=== PATIENT | female | born 1955 | race African-American/Black ===

== ENCOUNTER 2019-05-03 12:47 | Emergency (ER) | payer MEDICARE ==
[~2019-05-03] VITALS: Ht 170.2 cm; Wt 62.6 kg
[~2019-05-03 12:47] MED LIST: ABILIFY2 MG PO; CYCLOBENZAPRINE10 MG PO; ELDEPRYL5 MG ORAL; EMSAM; IRON; KLONOPIN0.5 MG ORAL; LAMOTRIGINE200 M1 PO; LEVOTHYROXINE; LEVOTHYROXINE50 MCG ORAL; LITHIUM CARBONATE; MIRTAZAPINE15 M3 ORAL; PEPCID20 MG ORAL; PERCOCET 5-3251 EACH ORAL; POLYETHYLENE GL17 GM ORAL; RISPERDAL2 MG ORAL; TRAZODONE HCL50 MG ORAL
[2019-05-03 12:50] VITALS: BP 106/60
--- NOTE | 2019-05-03 12:57 | NUR ---
ED Nurse Note: Patient waled into ED from home c/o generalized bodyaches and fatigue for the last 2 months. patient reports she is feeling more tired and painful starting today. patient is alert awake x4 ambulatory, breathing unlabored and even, speaking in full sentences
[2019-05-03 13:40] LABS: BASOPHILS % (AUTO) 1.4 % (0.0-2.0); EOSINOPHILS % (AUTO) 3.3 % (0.0-3.0); HEMOGLOBIN 13.2 G/DL (12.0-16.0); LYMPHOCYTES % (AUTO) 32.6 % (20.0-45.0); MEAN CORPUSCULAR VOLUME 84 FL (80-99); MONOCYTES % (AUTO) 7.2 % (1.0-10.0); NEUTROPHILS % (AUTO) 55.5 % (45.0-75.0); PLATELET COUNT 223 K/UL (150-450); RED BLOOD COUNT 4.91 M/UL (4.20-5.40); RED CELL DISTRIBUTION WIDTH 13.1 % (11.6-14.8); WHITE BLOOD COUNT 8.3 K/UL (4.8-10.8)
[2019-05-03 13:52] LABS: ANION GAP 8 mmol/L (5-15); BLOOD UREA NITROGEN 16 mg/dL (7-18); CALCIUM 10.3 MG/DL (8.5-10.1); CARBON DIOXIDE 27 MMOL/L (21-32); CHLORIDE 105 MMOL/L (98-107); CREATININE 1.4 MG/DL (0.55-1.30); POTASSIUM 4.8 MMOL/L (3.5-5.1); SODIUM 139 MMOL/L (136-145)
--- NOTE | 2019-05-03 13:53 | NUR ---
ED Nurse Note: patient taken to xray via wheelchair in stable condition
--- NOTE | 2019-05-03 14:03 | Emergency Room Report ---
History of Present Illness General Chief Complaint: Generalized Weakness Source: Patient Present Illness HPI 63-year-old female presents to the emergency department complaining of progressive generalized weakness and myalgias x1 month. Patient reports the last 2 weeks have had sick significant progression compared to previous weeks. Patient reports longstanding history of dysthymia and bipolar/depression as well as hypothyroidism. Patient states she had her labs done on initial evaluation by her psychiatrist and states that they were all normal. Patient states that they thought her severe lethargy and fatigue may have been medication side effect so they slowly took her off of Lamictal. Patient states that after being taken off Lamictal is when she noticed a large increase in her symptoms. Patient reports daytime tiredness as well as nodding off. She reports 3 out of 7 days of the week she sleeps normal 8 hours however the other day she states she wakes up after about 4 hours even if taking Seroquel at night for which she is prescribed as needed. She currently takes 450 mg lithium daily she has been on and off of this medication since the age of 22. She describes her muscle aches and pains as "sore as if you were just working out "she states she has increase in low back pain and bilateral hips. She states she slipped and fell and landed on her back approximately 2 weeks ago. Denies numbness tingling or loss of sensation or gross motor movements of the extremities, incontinence of bowel or bladder. Denies CP, Palpitations, LOC, AMS , dizziness, Changes in Vision, weakness or a sudden severe headache. She reports difficulty with concentration and feeling discombobulated and disorganized. She denies dysuria, hematuria or urinary frequency. She denies dizziness, nausea, vomiting or abdominal pain/tenderness. Allergies: Coded Allergies: No Known Allergies (Unverified , 12/16/11) Patient History Past Medical History: see triage record Past Surgical History: none Pertinent Family History: none Last Menstrual Period: NA Now: No Reviewed Nursing Documentation: PMH: Agreed; PSxH: Agreed Nursing Documentation-PMH Past Medical History: No History, Except For History Of Psychiatric Problem: Yes - Bipolar, depression Review of Systems All Other Systems: negative except mentioned in HPI Physical Exam Vital Signs Date Time Temp Pulse Resp B/P (MAP) Pulse Ox O2 Delivery O2 Flow Rate FiO2 05/03/19 12:50 98.1 90 18 106/60 98 Room Air Sp02 EP Interpretation: reviewed, normal General Appearance: no apparent distress, alert, GCS 15, non-toxic Head: normocephalic, atraumatic Eyes: bilateral eye normal inspection, bilateral eye PERRL ENT: hearing grossly normal, normal voice Neck: full range of motion Respiratory: chest non-tender, lungs clear, normal breath sounds, speaking full sentences Cardiovascular #1: regular rate, rhythm, no edema Gastrointestinal: normal bowel sounds, non tender, soft Rectal: deferred Genitourinary: normal inspection, no CVA tenderness Musculoskeletal: normal range of motion, gait/station normal, non-tender - NO tenderness: pt. reports improvement of pain when palpating lumbar paraspinal musculature. No midline spinous process ttp. No palpable step-offs or obvious deformities of the cervical, lumbar, or sacral spine. Neurologic: alert, motor strength/tone normal, oriented x3, sensory intact, responsive, speech normal Psychiatric: judgement/insight normal Skin: no rash, normal color Lymphatic: no adenopathy Medical Decision Making PA Attestation Dr. Hutchinson is my supervising Physician whom patient management has been discussed with. Diagnostic Impression: Primary Impression: Hypothyroid Qualified Codes: E03.9 - Hypothyroidism, unspecified Additional Impression: First degree heart block determined by electrocardiography ER Course 63-year-old female presents to the emergency department complaining of progressive generalized weakness and myalgias x1 month. Patient reports the last 2 weeks have had sick significant progression compared to previous weeks. Patient reports longstanding history of dysthymia and bipolar/depression as well as hypothyroidism. Patient states she had her labs done on initial evaluation by her psychiatrist and states that they were all normal. Patient states that they thought her severe lethargy and fatigue may have been medication side effect so they slowly took her off of Lamictal. Patient states that after being taken off Lamictal is when she noticed a large increase in her symptoms. Patient reports daytime tiredness as well as nodding off. She reports 3 out of 7 days of the week she sleeps normal 8 hours however the other day she states she wakes up after about 4 hours even if taking Seroquel at night for which she is prescribed as needed. She currently takes 450 mg lithium daily she has been on and off of this medication since the age of 22. She describes her muscle aches and pains as "sore as if you were just working out "she states she has increase in low back pain and bilateral hips. She states she slipped and fell and landed on her back approximately 2 weeks ago. Denies numbness tingling or loss of sensation or gross motor movements of the extremities, incontinence of bowel or bladder. Denies CP, Palpitations, LOC, AMS , dizziness, Changes in Vision, weakness or a sudden severe headache. She reports difficulty with concentration and feeling discombobulated and disorganized. She denies dysuria, hematuria or urinary frequency. She denies dizziness, nausea, vomiting or abdominal pain/tenderness. Ddx considered but are not limited to : MS, MG, [place], [place], drug intoxication, hypovolemia, infection, rhabdomyolysis, ETOH, CVA/TIA, NMS, CHF, Seizures, Cardiac outflow obstruction, QT-prolongation, Brugada, or Anemia just to name a few. Vital signs: are WNL, pt. is afebrile H&PE are most consistent with possible hypothyroid as most likely cause, will do labs ORDERS: -EKG: sinus kinsey with mild 1st degree AV block. -CBC: Unremarkable -CMP: Within normal limits other than creatinine of 1.4 -CK: Normal -TSH: 10.38 which is high -Free T3/T4 : both WNL UA: WNL ED INTERVENTIONS: None required at this time. --I discussed with this patient the results of her lab work and that we will mildly increase her dosage of levothyroxine but she needs to follow-up urgently with her primary care provider as she may require additional adjustments and repeat labs. Also discussed with patient abnormality found on EKG and the need for cardiology follow-up. She is given a copy of her EKG her discharge instructions will reiterate need for cardiology follow-up as well. The patient verbalizes her understanding and agreement with this plan. DISCHARGE: At this time pt. is stable for d/c to home. Will provide printed patient care instructions, and any necessary prescriptions. Care plan and follow up instructions have been discussed with the patient prior to discharge. Labs Test 05/03/19 13:24 White Blood Count 8.3 K/UL (4.8-10.8) Red Blood Count 4.91 M/UL (4.20-5.40) Hemoglobin 13.2 G/DL (12.0-16.0) Hematocrit 41.0 % (37.0-47.0) Mean Corpuscular Volume 84 FL (80-99) Mean Corpuscular Hemoglobin 26.9 PG (27.0-31.0) Mean Corpuscular Hemoglobin Concent 32.2 G/DL (32.0-36.0) Red Cell Distribution Width 13.1 % (11.6-14.8) Platelet Count 223 K/UL (150-450) Mean Platelet Volume 6.4 FL (6.5-10.1) Neutrophils (%) (Auto) 55.5 % (45.0-75.0) Lymphocytes (%) (Auto) 32.6 % (20.0-45.0) Monocytes (%) (Auto) 7.2 % (1.0-10.0) Eosinophils (%) (Auto) 3.3 % (0.0-3.0) Basophils (%) (Auto) 1.4 % (0.0-2.0) Urine Color Pale yellow Urine Appearance Clear Urine pH 7 (4.5-8.0) Urine Specific [place] 1.005 (1.005-1.035) Urine Protein Negative (NEGATIVE) Urine Glucose (UA) Negative (NEGATIVE) Urine Ketones Negative (NEGATIVE) Urine Blood Negative (NEGATIVE) Urine Nitrite Negative (NEGATIVE) Urine Bilirubin Negative (NEGATIVE) Urine Urobilinogen Normal MG/DL (0.0-1.0) Urine Leukocyte Esterase 1+ (NEGATIVE) Urine RBC 0 /HPF (0 - 2) Urine WBC 0-2 /HPF (0 - 2) Urine Squamous Epithelial Cells Few /LPF (NONE/OCC) Urine Bacteria Occasional /HPF (NONE) Sodium Level 139 MMOL/L (136-145) Potassium Level 4.8 MMOL/L (3.5-5.1) Chloride Level 105 MMOL/L (98-107) Carbon Dioxide Level 27 MMOL/L (21-32) Anion Gap 8 mmol/L (5-15) Blood Urea Nitrogen 16 mg/dL (7-18) Creatinine 1.4 MG/DL (0.55-1.30) Estimat Glomerular Filtration Rate 45.8 mL/min (>60) Glucose Level 107 MG/DL (74-106) Calcium Level 10.3 MG/DL (8.5-10.1) Total Bilirubin 0.3 MG/DL (0.2-1.0) Aspartate Amino Transf (AST/SGOT) 35 U/L (15-37) Alanine Aminotransferase (ALT/SGPT) 25 U/L (12-78) Alkaline Phosphatase 85 U/L (46-116) Total Creatine Kinase 205 U/L (26-308) Total Protein 7.9 G/DL (6.4-8.2) Albumin 3.9 G/DL (3.4-5.0) Globulin 4.0 g/dL Albumin/Globulin Ratio 1.0 (1.0-2.7) Thyroid Stimulating Hormone (TSH) 10.389 uiU/mL (0.358-3.740) Free Thyroxine 0.77 NG/DL (0.76-1.46) Free Triiodothyronine 2.3 pg/mL (2.3-4.2) EKG Diagnostic Results EP Interpretation: Dr. Hutchinson Rate: bradycardiac - 59 Rhythm: NSR ST Segments: no acute changes ASA given to the pt in ED: No PA Scribe Text This Interpretation was scribed by EM Mcneal. Other X-Ray Diagnostic Results Other X-Ray Diagnostic Results #1: X-Ray ordered: L-Spint # of Views/Limited Vs Complete: 3 View Indication: Pain EP Interpretation: Yes EM Xray: Interpretation reviewed, by supervising MD, and agrees with findings. Interpretation: no dislocation, no soft tissue swelling, no fractures Impression: No acute disease Electronically Signed by: Damaris Mcneal PA-C Other X-Ray Diagnostic Results #2: X-Ray ordered: Bilateral Hips w. AP pelvis # of Views/Limited Vs Complete: 4 View Indication: Pain EP Interpretation: Yes EM Xray: Interpretation reviewed, by supervising MD, and agrees with findings. Interpretation: no dislocation, no soft tissue swelling, no fractures, other - moderate amt. of stool Impression: No acute disease Electronically Signed by: Damaris Mcneal PA-C Last Vital Signs Date Time Temp Pulse Resp B/P (MAP) Pulse Ox O2 Delivery O2 Flow Rate FiO2 05/03/19 13:04 90 18 Room Air 05/03/19 12:50 98.1 106/60 (75) 98 Status: improved Disposition: HOME, SELF-CARE Condition: Stable Scripts Levothyroxine Sodium (Synthroid) 50 Mcg Tablet 50 MCG ORAL DAILY for 30 Days, #30 TAB Take in the morning on an empty stomach, at least 30 minutes beforefood. Prov: Damaris Mcneal 05/03/19 Referrals: SHELIA SOUSA MD (PCP) Patient Instructions: First-Degree Atrioventricular Block, Hypothyroidism Additional Instructions: Take medications as directed. Follow up with a Primary Care Provider in 3-5 days, well as a PAI GOW MANAGER even if your symptoms have resolved. Return sooner to ED if new symptoms occur, or current symptoms become worse. - Please note that this Emergency Department Report was dictated using [employer] developer manager technology software, occasionally this can lead to erroneous entry secondary to interpretation by the dictation equipment. Damaris Mcneal May 03, 2019 14:03
[2019-05-03 14:07] LABS: ALANINE AMINOTRANSFERASE 25 U/L (12-78); ALBUMIN 3.9 G/DL (3.4-5.0); ALKALINE PHOSPHATASE 85 U/L (46-116); ASPARTATE AMINO TRANSFERASE 35 U/L (15-37); BILIRUBIN,TOTAL 0.3 MG/DL (0.2-1.0); CREATINE KINASE 205 U/L (26-308)
--- NOTE | 2019-05-03 14:49 | Diagnostic Imaging Report ---
EXAM: XR Lumbar Spine, 2 or 3 Views CLINICAL HISTORY: PAIN TECHNIQUE: Frontal and lateral views of the lumbar spine. COMPARISON: No relevant prior studies available. FINDINGS: Vertebrae: No acute fracture or malalignment. Degenerative changes and osteopenia. Disc spaces: No acute findings. Soft tissues: No radiodense foreign body. IMPRESSION: No acute fracture or malalignment.
[2019-05-03 15:00] VITALS: BP 110/62
[2019-05-03 15:02] LABS: APPEARANCE,URINE CLEAR; BILIRUBIN, URINE NEGATIVE (NEGATIVE); COLOR,URINE PALE YELLOW; GLUCOSE, URINE (UA) NEGATIVE (NEGATIVE); KETONES,URINE NEGATIVE (NEGATIVE); LEUKOCYTE ESTERASE ,URINE 1+ (NEGATIVE); NITRITE,URINE NEGATIVE (NEGATIVE); PH,URINE 7 (4.5-8.0); PROTEIN,URINE NEGATIVE (NEGATIVE); UROBILINOGEN,URINE NORMAL MG/DL (0.0-1.0)
--- NOTE | 2019-05-03 15:06 | Diagnostic Imaging Report ---
EXAM: XR Bilateral Hips With Pelvis When Performed, 3 films CLINICAL HISTORY: PAIN TECHNIQUE: Three views of the bilateral hips, with pelvis when performed. COMPARISON: No relevant prior studies available. FINDINGS: Bones/joints: No acute fracture. Soft tissues: No radiodense foreign body. IMPRESSION: No fracture or dislocation.
[2019-05-03] MEDS ORDERED: SYNTHROID50 MCG ORAL (15:22)
[2019-05-03 15:35] VITALS: BP 110/62
--- NOTE | 2019-05-03 15:35 | NUR ---
ER DISCHARGE NOTE: Patient is cleared to be discharged per ERNA GIL, pt is aox4, on room air, with stable vital signs. pt was given dc and prescription instructions, pt was able to verbalize understanding, pt id band and iv site removed without complications. pt is able to ambulate with steady gait. pt took all belongings.
== END 2019-05-03 15:34 | disposition home or self-care (01) ==
LOC: EMR 13:18
DX: E03.9 Hypothyroidism, unspecified (principal); I44.0 Atrioventricular block, first degree; F31.9 Bipolar disorder, unspecified; F32.9 Major depressive disorder, single episode, unspecified; M79.10 Myalgia, unspecified site; R00.1 Bradycardia, unspecified
CPT/HCPCS: 36415; 72020; 73521; 80053; 81003; 82550; 84439; 84443; 84481; 85025; 93005; 99284

== ENCOUNTER 2019-05-29 16:41 | Emergency (ER) | payer MEDICARE ==
[~2019-05-29] VITALS: Ht 167.6 cm; Wt 63.0 kg
[2019-05-29 16:32] VITALS: BP 156/71
--- NOTE | 2019-05-29 16:35 | NUR ---
ED Nurse Note: Patient walked in to ER from home due to abdominal pain and SOB since this morning. pt denied fever, N/V/D. temp 98.6F noted. pt also c/o fatigued and constipation, unable to sleep for last 3 months. anxiousness and irritability noted but able to follow commands and no combative behavior noted. pt aao x4 and ambulatory. skin clean and intact. no coughing noted. O2 at room air 99% noted. pt has h/o bipolar. no cardiac or pulmonary distress noted at this time.
[~2019-05-29 16:41] MED LIST changes: +SEROQUEL100 MG ORAL; +SYNTHROID100 MCG ORAL; +SYNTHROID50 MCG ORAL
--- NOTE | 2019-05-29 17:17 | NUR ---
ED Nurse Note: pt urinated in the specimen cup but dropped and spilled it. ERPA made aware. pt provided two cups of water for another urine sample.
[2019-05-29] MEDS ORDERED: Lidocaine 2% Visc 15ml soln ORAL ONE (17:30)
--- NOTE | 2019-05-29 17:30 | Emergency Room Report ---
History of Present Illness General Chief Complaint: General Complaint Source: Patient Present Illness HPI 63-year-old female presents to the emergency department with multiple complaints most of which are similar to complaint she presented for the emergency department approximately 26 days ago. She reports having an episode of feeling shortness of breath as well as low back pain. Patient reports that the back pain is new and argues that she did not have back pain last visit despite having an L-spine x-ray performed. She is also reporting some lower abdominal pain. Patient states that her PCP increased her dosage of levothyroxine to 100 mg from her last visit here in the ED. She reports constant fatigue and difficulty sleeping. She reports persistent body aches/ muscle aches. She denies trauma or fall. Denies numbness tingling or loss of sensation or gross motor movements of the extremities, incontinence of bowel or bladder. Denies CP, Palpitations, LOC, AMS, dizziness, Changes in Vision, weakness or a sudden severe headache. She denies CP, palpitations, recent travel, recent surgery, or estrogen use. She denies smoking hx. Denies cough, hemoptysis, or wheezing. She denies fevers or chills. Allergies: Coded Allergies: No Known Allergies (Unverified , 12/16/11) COVID-19 Screening Contact w/high risk pt: No Recent Travel to affected area: No Experienced COVID-19 symptoms?: Yes COVID-19 symptoms experienced: Shortness of Breath Patient History Past Medical History: see triage record Past Surgical History: unable to obtain Pertinent Family History: none Now: No Reviewed Nursing Documentation: PMH: Agreed; PSxH: Agreed Nursing Documentation-PMH Past Medical History: No History, Except For History Of Psychiatric Problem: Yes - Bipolar Review of Systems All Other Systems: negative except mentioned in HPI Physical Exam Vital Signs Date Time Temp Pulse Resp B/P (MAP) Pulse Ox O2 Delivery O2 Flow Rate FiO2 05/29/19 16:24 98.6 91 17 156/71 (99) 99 Room Air Sp02 EP Interpretation: reviewed, normal General Appearance: well appearing, no apparent distress, alert, GCS 15, non- toxic Head: normocephalic, atraumatic Eyes: bilateral eye normal inspection, bilateral eye PERRL ENT: hearing grossly normal, normal voice Neck: full range of motion Respiratory: chest non-tender, lungs clear, normal breath sounds, no respiratory distress, no accessory muscle use, no wheezing, speaking full sentences Cardiovascular #1: regular rate, rhythm, no edema, normal capillary refill Gastrointestinal: normal bowel sounds, non tender - no tenderness on exam., soft, non-distended, no guarding Rectal: deferred Genitourinary: normal inspection, no CVA tenderness Musculoskeletal: back normal, normal range of motion, gait/station normal, non- tender, other - Pt. has FROM noted to initially lying on the ground, stand up , ambulate, sit in chair with legs flexed and on nearby chair. Neurologic: alert, motor strength/tone normal, oriented x3, sensory intact, responsive, speech normal, normal gait Psychiatric: anxious, other - Pt. has very labile mood rapidly cycling between calm and cooperative to histrionic, lying on the floor, and easily agitated with HPI questions. Skin: no rash, normal color, normal inspection Lymphatic: no adenopathy Medical Decision Making PA Attestation Dr. Sunshine is my supervising Physician whom patient management has been discussed with. Diagnostic Impression: Primary Impression: Abdominal pain Qualified Codes: R10.30 - Lower abdominal pain, unspecified Additional Impressions: Increasing shortness of breath Fatigue Qualified Codes: R53.83 - Other fatigue Myalgia ER Course 63-year-old female presents to the emergency department with multiple complaints most of which are similar to complaint she presented for the emergency department approximately 26 days ago. She reports having an episode of feeling shortness of breath as well as low back pain. Patient reports that the back pain is new and argues that she did not have back pain last visit despite having an L-spine x-ray performed. She is also reporting some lower abdominal pain. Patient states that her PCP increased her dosage of levothyroxine to 100 mg from her last visit here in the ED. She reports constant fatigue and difficulty sleeping. She reports persistent body aches/ muscle aches. She denies trauma or fall. Denies numbness tingling or loss of sensation or gross motor movements of the extremities, incontinence of bowel or bladder. Denies CP, Palpitations, LOC, AMS, dizziness, Changes in Vision, weakness or a sudden severe headache. She denies CP, palpitations, recent travel, recent surgery, or estrogen use. She denies smoking hx. Denies cough, hemoptysis, or wheezing. She denies fevers or chills. Ddx considered but are not limited to Diverticulitis, acute appy, diarrhea,UC, PUD, GE, pancreatitis, gallstone Vital signs: are WNL, pt. is afebrile H&PE are most consistent with change in behavior/ character since last ED visit. Suspect possible non-compliance with or not at therapeutic level of psychiatric medications. Abdominal exam is benign and does not demonstrate acute abdomen. Pt. is non- toxic in appearance, not showing signs of distress or respiratory distress. ORDERS: -CXR: Unremarkable -KUB: Unremarkable -UA: Unremarkable ED INTERVENTIONS: -- Pepcid PO -- Lidocaine viscous PO d/w pt. follow up instructions. Pt. initially was very upset that she was encouraged to follow up with psychiatry and after talking with the patient more she began to understand that her medications may need to be adjusted and that we are not being biased with her medical care due to hx. of bipolar. DISCHARGE: At this time pt. is stable for d/c to home. Will provide printed patient care instructions, and any necessary prescriptions. Care plan and follow up instructions have been discussed with the patient prior to discharge. Labs Test 05/29/19 17:10 Urine Color Pale yellow Urine Appearance Cloudy Urine pH 5 (4.5-8.0) Urine Specific [place] 1.010 (1.005-1.035) Urine Protein Negative (NEGATIVE) Urine Glucose (UA) Negative (NEGATIVE) Urine Ketones 2+ (NEGATIVE) Urine Blood 1+ (NEGATIVE) Urine Nitrite Negative (NEGATIVE) Urine Bilirubin Negative (NEGATIVE) Urine Urobilinogen Normal MG/DL (0.0-1.0) Urine Leukocyte Esterase Negative (NEGATIVE) Urine RBC 2-4 /HPF (0 - 2) Urine WBC 0-2 /HPF (0 - 2) Urine Squamous Epithelial Cells Few /LPF (NONE/OCC) Urine Bacteria Few /HPF (NONE) Chest X-Ray Diagnostic Results Chest X-Ray Diagnostic Results : Chest X-Ray Ordered: Yes # of Views/Limited/Complete: 1 View Indication: Shortness of Breath EP Interpretation: Yes PA Xray: Interpretation reviewed, by supervising MD, and agrees with findings. Interpretation: no consolidation, no effusion, no pneumothorax, no acute cardiopulmonary disease Impression: No acute disease Electronically Signed by: Damaris Mcneal PA-C Other X-Ray Diagnostic Results Other X-Ray Diagnostic Results : X-Ray ordered: Abdominal KUB # of Views/Limited Vs Complete: 1 View Indication: Pain EP Interpretation: Yes PA Xray: Interpretation reviewed, by supervising MD, and agrees with findings. Interpretation: nonspecific bowel gas, no sbo Impression: No acute disease Electronically Signed by: Damaris Mcneal PA-C Last Vital Signs Date Time Temp Pulse Resp B/P (MAP) Pulse Ox O2 Delivery O2 Flow Rate FiO2 05/29/19 16:32 98.6 91 17 156/71 99 Room Air Disposition: HOME, SELF-CARE Condition: Stable Scripts Omeprazole Magnesium (PRILOSEC OTC) 20 Mg Tablet.dr 20 MG ORAL DAILY, #10 TAB Prov: Damaris Mcneal 05/29/19 Docusate Sodium* (COLACE*) 100 Mg Capsule 100 MG ORAL TWICE A DAY, #30 CAP Prov: Damaris Mcneal 05/29/19 Patient Instructions: Abdominal Pain, Adult, [id number], Medical Screening Exam, Shortness of Breath, [id number] Additional Instructions: ~ ~ An emergent medical condition has not been identified based on this patients presentation, exam and any necessary testing/imaging. The patient is determined to be stable for outpatient follow-up and management of symptoms by a primary care provider. ~~ Self Quarantine x 2 weeks, as you have been in a location that has a high risk for presence of COVID-19. Should you develop symptoms contact your primary care doctor for at home treatments and evaluation. Take medications as directed. -- PSYCHIATRIC EVALUATION and MEDICATION MANAGEMENT REQUIRED. Follow up with a Primary Care Provider in 3-5 days, even if your symptoms have resolved. Return sooner to ED if new symptoms occur, or current symptoms become worse. - Please note that this Emergency Department Report was dictated using [employer] manager technology software, occasionally this can lead to erroneous entry secondary to interpretation by the dictation equipment. Damaris Mcneal May 29, 2019 17:30
--- NOTE | 2019-05-29 17:46 | NUR ---
ED Nurse Note: pt taken to x-ray in stable condition.
[2019-05-29 17:51] LABS: APPEARANCE,URINE CLOUDY; BILIRUBIN, URINE NEGATIVE (NEGATIVE); COLOR,URINE PALE YELLOW; GLUCOSE, URINE (UA) NEGATIVE (NEGATIVE); KETONES,URINE 2+ (NEGATIVE); LEUKOCYTE ESTERASE ,URINE NEGATIVE (NEGATIVE); NITRITE,URINE NEGATIVE (NEGATIVE); PH,URINE 5 (4.5-8.0); PROTEIN,URINE NEGATIVE (NEGATIVE); UROBILINOGEN,URINE NORMAL MG/DL (0.0-1.0)
--- NOTE | 2019-05-29 17:56 | NUR ---
ED Nurse Note: pt came back from x-ray in stable condition.
[2019-05-29 18:22] VITALS: BP_SYST 145; BP_SYST 157; BP_SYST 165; BP_DIAS 79; BP_DIAS 82; BP_DIAS 92
--- NOTE | 2019-05-29 18:39 | NUR ---
ED Nurse Note: called lab for the result for UA. they are entering the result now.
--- NOTE | 2019-05-29 18:49 | NUR ---
ED Nurse Note: pt ambulated to bathroom with steady gait.
--- NOTE | 2019-05-29 18:58 | NUR ---
ED Nurse Note: pt still in bathroom. pt responded and said she is still using bathroom.
[2019-05-29] MEDS ORDERED: PRILOSEC OTC20 MG ORAL (19:02)
[2019-05-29] MEDS ORDERED: COLACE100 MG ORAL (19:02)
[2019-05-29 19:45] VITALS: BP 142/88
--- NOTE | 2019-05-29 19:45 | NUR ---
ER DISCHARGE NOTE: Patient is cleared to be discharged per ERMD, pt is aox4, on room air, with stable vital signs. pt was given dc and prescription instructions, pt was able to verbalize understanding, pt id band removed without complications. pt is able to ambulate with steady gait. pt took all belongings.
--- NOTE | 2019-05-30 10:35 | Diagnostic Imaging Report ---
Indication: Dyspnea Comparison: None A single view chest radiograph was obtained. Findings: Cardiomediastinal appearance is within normal limits for age. The lungs are clear. Pulmonary vascularity is appropriate. The diaphragmatic contour is smooth and costophrenic angles are sharp. No pleural effusions are identified. The bones are unremarkable. Impression: No acute findings
--- NOTE | 2019-05-30 10:35 | Diagnostic Imaging Report ---
Indication: Abdominal pain Comparison: None Single view of the abdomen obtained Findings: Bowel gas pattern is nonspecific. No mass, ectopic calcifications, or abnormal gas collections are identified. The bones are unremarkable. Impression: No acute findings
== END 2019-05-29 19:45 | disposition home or self-care (01) ==
LOC: EDBD 16:41 → EMR 17:00
DX: R10.30 Lower abdominal pain, unspecified (principal); R06.02 Shortness of breath; R53.83 Other fatigue; M79.10 Myalgia, unspecified site; F31.9 Bipolar disorder, unspecified
CPT/HCPCS: 71045; 74018; 81003; 99284

== ENCOUNTER 2019-07-13 12:34 | Emergency (ER) | payer MEDICARE ==
[~2019-07-13] VITALS: Ht 160 cm; Wt 59.0 kg
[~2019-07-13 12:34] MED LIST changes: +COLACE100 MG ORAL; +PRILOSEC OTC20 MG ORAL
[2019-07-13] MEDS ORDERED: LAMICTAL100 MG ORAL (12:50)
--- NOTE | 2019-07-13 12:51 | NUR ---
ED Nurse Note: Pt ambulated to ed stating she history of bipolar disorder diagnosed a 23 years old. pt states she takes lamictdol on a consist basis and has missed a dose. the last 3 days she has felt that she has been unable to sleep and feels groggy. pt reports weakness.
[2019-07-13 12:54] VITALS: BP 122/73
--- NOTE | 2019-07-13 13:22 | NUR ---
ED Nurse Note: IV line established, patent and intact. blood specimen sent to lab
--- NOTE | 2019-07-13 13:37 | Emergency Room Report ---
History of Present Illness General Chief Complaint: General Complaint Source: Patient Present Illness HPI 63-year-old female history of hypothyroidism history of bipolar disorder presents with fatigue x6 months, patient states she has had worsening fatigue over the past 2 to 3 days patient reports that her thyroid medication was reduced from 100 mcg to 50 mcg she has any chest pain shortness of breath no dyspnea on exertion, she feels more tired may be aggravated by change in thyroid medication alleviated by higher doses severity is mild, constant patient presents for evaluation Allergies: Coded Allergies: No Known Allergies (Unverified , 12/16/11) COVID-19 Screening Contact w/high risk pt: No Recent Travel to affected area: No Experienced COVID-19 symptoms?: No COVID-19 symptoms experienced: Shortness of Breath COVID-19 Testing performed 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 Patient History Past Medical History: see triage record Reviewed Nursing Documentation: PMH: Agreed; PSxH: Agreed Nursing Documentation-PM Past Medical History: No History, Except For Hx Gastrointestinal Problems: Yes - gastritis History Of Psychiatric Problem: Yes - Bipolar I Review of Systems All Other Systems: negative except mentioned in HPI Physical Exam Vital Signs Date Time Temp Pulse Resp B/P (MAP) Pulse Ox O2 Delivery O2 Flow Rate FiO2 07/13/19 12:45 98.4 63 15 122/73 (89) 100 Room Air Sp02 EP Interpretation: reviewed, normal General Appearance: well appearing, no apparent distress, alert Head: normocephalic, atraumatic Eyes: bilateral eye PERRL, bilateral eye EOMI ENT: uvula midline, moist mucus membranes Neck: supple, thyroid normal, supple/symm/no masses Respiratory: lungs clear, no respiratory distress, no retraction, no accessory muscle use Cardiovascular #1: normal peripheral pulses, regular rate, rhythm, no edema, no gallop, no murmur Gastrointestinal: non tender, soft, no guarding, no rebound Musculoskeletal: normal inspection Neurologic: alert, oriented x3 Psychiatric: mood/affect normal Skin: no rash, warm/dry Medical Decision Making Diagnostic Impression: Primary Impression: Fatigue Qualified Codes: R53.83 - Other fatigue Additional Impression: Hypothyroidism Qualified Codes: E03.9 - Hypothyroidism, unspecified ER Course 63-year-old female presents with vague symptoms consistent with hypothyroidism, patient states that her dose was reduced, differential diagnosis includes UTI, ACS, hypothyroidism we will check a TSH T3-T4, chest x-ray is negative for any acute pathology, patient will be rehydrated, will refer patient back to her doctor for further evaluation and further titration of her hypothyroid medication Laboratory Tests Test 07/13/19 13:08 07/13/19 14:12 White Blood Count 7.8 K/UL (4.8-10.8) Red Blood Count 4.65 M/UL (4.20-5.40) Hemoglobin 12.3 G/DL (12.0-16.0) Hematocrit 36.9 % (37.0-47.0) L Mean Corpuscular Volume 79 FL (80-99) L Mean Corpuscular Hemoglobin 26.5 PG (27.0-31.0) L Mean Corpuscular Hemoglobin Concent 33.4 G/DL (32.0-36.0) Red Cell Distribution Width 12.2 % (11.6-14.8) Platelet Count 223 K/UL (150-450) Mean Platelet Volume 6.6 FL (6.5-10.1) Neutrophils (%) (Auto) 37.0 % (45.0-75.0) L Lymphocytes (%) (Auto) 49.2 % (20.0-45.0) H Monocytes (%) (Auto) 8.6 % (1.0-10.0) Eosinophils (%) (Auto) 3.1 % (0.0-3.0) H Basophils (%) (Auto) 2.1 % (0.0-2.0) H Urine Color Pale yellow Urine Appearance Clear Urine pH 7 (4.5-8.0) Urine Specific [place] 1.005 (1.005-1.035) Urine Protein Negative (NEGATIVE) Urine Glucose (UA) Negative (NEGATIVE) Urine Ketones Negative (NEGATIVE) Urine Blood Negative (NEGATIVE) Urine Nitrite Negative (NEGATIVE) Urine Bilirubin Negative (NEGATIVE) Urine Urobilinogen Normal MG/DL (0.0-1.0) Urine Leukocyte Esterase Negative (NEGATIVE) Sodium Level 137 MMOL/L (136-145) 144 MMOL/L (136-145) Potassium Level 8.5 MMOL/L (3.5-5.1) *H 4.9 MMOL/L (3.5-5.1) Chloride Level 106 MMOL/L (98-107) 110 MMOL/L (98-107) H Carbon Dioxide Level 23 MMOL/L (21-32) 28 MMOL/L (21-32) Anion Gap 9 mmol/L (5-15) 6 mmol/L (5-15) Blood Urea Nitrogen 14 mg/dL (7-18) 12 mg/dL (7-18) Creatinine 1.1 MG/DL (0.55-1.30) 1.2 MG/DL (0.55-1.30) Estimated Glomerular Filtration Rate 50.0 mL/min (>60) 45.3 mL/min (>60) Glucose Level 92 MG/DL (74-106) 102 MG/DL (74-106) Calcium Level 9.5 MG/DL (8.5-10.1) 9.5 MG/DL (8.5-10.1) Total Bilirubin 0.4 MG/DL (0.2-1.0) 0.2 MG/DL (0.2-1.0) Aspartate Amino Transferase (AST) 60 U/L (15-37) H 23 U/L (15-37) Alanine Aminotransferase (ALT) 32 U/L (12-78) 25 U/L (12-78) Alkaline Phosphatase 69 U/L (46-116) 66 U/L (46-116) Troponin I 0.000 ng/mL (0.000-0.056) Total Protein 7.1 G/DL (6.4-8.2) 6.2 G/DL (6.4-8.2) L Albumin 3.5 G/DL (3.4-5.0) 3.3 G/DL (3.4-5.0) L Globulin 3.6 g/dL 2.9 g/dL Albumin/Globulin Ratio 1.0 (1.0-2.7) 1.1 (1.0-2.7) Thyroid Stimulating Hormone (TSH) 0.735 uiU/mL (0.358-3.740) Free Thyroxine 1.03 NG/DL (0.76-1.46) Free Triiodothyronine 2.1 pg/mL (2.3-4.2) L EKG Diagnostic Results EKG Time: 13:06 EP Interpretation: Sinus bradycardia, rate 57, QTc 397, no acute ST elevations , normal axis Chest X-Ray Diagnostic Results Chest X-Ray Diagnostic Results : Chest X-Ray Ordered: Yes # of Views/Limited/Complete: 1 View Indication: Other - fatigue EP Interpretation: Yes Interpretation: no consolidation, no effusion, no pneumothorax, no acute cardiopulmonary disease Impression: No acute disease Electronically Signed by: Oleg Gutierrez MD Last Vital Signs Date Time Temp Pulse Resp B/P (MAP) Pulse Ox O2 Delivery O2 Flow Rate FiO2 07/13/19 12:54 63 15 Room Air 07/13/19 12:54 98.4 122/73 100 Disposition: HOME, SELF-CARE Condition: Stable Referrals: [facility],REFERRING (PCP) Patient Instructions: Fatigue, Hypothyroidism Additional Instructions: The patient was provided with discharge instructions, notified to follow-up with a primary care doctor and or specialist in the next 24-48 hours, and to return to the ED if they have worsening of their symptoms. Please note that this report is being documented using [employer] technology. This can lead to erroneous entry secondary to incorrect interpretation by the dictating instrument. PLEASE FOLLOW-UP WITH YOUR PCP IN REGARDS TO ADJUSTING YOUR THYROID MEDICATION Oleg Gutierrez MD July 13, 2019 13:37
[2019-07-13 13:47] LABS: APPEARANCE,URINE CLEAR; BILIRUBIN, URINE NEGATIVE (NEGATIVE); COLOR,URINE PALE YELLOW; GLUCOSE, URINE (UA) NEGATIVE (NEGATIVE); KETONES,URINE NEGATIVE (NEGATIVE); LEUKOCYTE ESTERASE ,URINE NEGATIVE (NEGATIVE); NITRITE,URINE NEGATIVE (NEGATIVE); PH,URINE 7 (4.5-8.0); PROTEIN,URINE NEGATIVE (NEGATIVE); UROBILINOGEN,URINE NORMAL MG/DL (0.0-1.0)
[2019-07-13 13:50] LABS: BASOPHILS % (AUTO) 2.1 % (0.0-2.0); EOSINOPHILS % (AUTO) 3.1 % (0.0-3.0); HEMATOCRIT 36.9 % (37.0-47.0); HEMOGLOBIN 12.3 G/DL (12.0-16.0); LYMPHOCYTES % (AUTO) 49.2 % (20.0-45.0); MEAN CORPUSCULAR VOLUME 79 FL (80-99); MONOCYTES % (AUTO) 8.6 % (1.0-10.0); PLATELET COUNT 223 K/UL (150-450); RED BLOOD COUNT 4.65 M/UL (4.20-5.40); RED CELL DISTRIBUTION WIDTH 12.2 % (11.6-14.8); WHITE BLOOD COUNT 7.8 K/UL (4.8-10.8)
[2019-07-13 14:07] LABS: ALANINE AMINOTRANSFERASE 32 U/L (12-78); ALBUMIN 3.5 G/DL (3.4-5.0); ALKALINE PHOSPHATASE 69 U/L (46-116); ANION GAP 9 mmol/L (5-15); ASPARTATE AMINO TRANSFERASE 60 U/L (15-37); BILIRUBIN,TOTAL 0.4 MG/DL (0.2-1.0); BLOOD UREA NITROGEN 14 mg/dL (7-18); CALCIUM 9.5 MG/DL (8.5-10.1); CARBON DIOXIDE 23 MMOL/L (21-32); CHLORIDE 106 MMOL/L (98-107); CREATININE 1.1 MG/DL (0.55-1.30); SODIUM 137 MMOL/L (136-145)
--- NOTE | 2019-07-13 14:16 | NUR ---
ED Nurse Note: Repeat CMP sent to lab
[2019-07-13 14:17] LABS: POTASSIUM 8.5 MMOL/L (3.5-5.1)
[2019-07-13 14:31] VITALS: BP 119/74
[2019-07-13 14:43] LABS: ALANINE AMINOTRANSFERASE 25 U/L (12-78); ALBUMIN 3.3 G/DL (3.4-5.0); ALBUMIN/GLOBULIN RATIO 1.1 (1.0-2.7); ALKALINE PHOSPHATASE 66 U/L (46-116); ANION GAP 6 mmol/L (5-15); ASPARTATE AMINO TRANSFERASE 23 U/L (15-37); BILIRUBIN,TOTAL 0.2 MG/DL (0.2-1.0); BLOOD UREA NITROGEN 12 mg/dL (7-18); CALCIUM 9.5 MG/DL (8.5-10.1); CARBON DIOXIDE 28 MMOL/L (21-32); CHLORIDE 110 MMOL/L (98-107); CREATININE 1.2 MG/DL (0.55-1.30); POTASSIUM 4.9 MMOL/L (3.5-5.1); SODIUM 144 MMOL/L (136-145)
[2019-07-13 14:54] VITALS: BP 123/79
--- NOTE | 2019-07-13 14:55 | NUR ---
ER DISCHARGE NOTE: Patient is cleared to be discharged per ERMD, pt is aox4, on room air, with stable vital signs. pt was given dc and prescription instructions, pt was able to verbalize understanding, pt id band and iv site removed without complications. pt is able to ambulate with steady gait. pt took all belongings.
--- NOTE | 2019-07-14 08:17 | Diagnostic Imaging Report ---
Procedure: XRAY Chest 1v Reason for study: Reason For Exam: COUGH Comparison films: 05/29/2019. FINDINGS: A single one view chest is obtained. Vascularity is normal. The lung forrester are clear bilaterally. Cardiac and mediastinal silhouette are within normal limits. CP angles are sharp. The bony thorax appear unremarkable. IMPRESSION: NO ACUTE CARDIOPULMONARY DISEASE.
== END 2019-07-13 14:55 | disposition home or self-care (01) ==
LOC: EMR 13:00
DX: R53.83 Other fatigue (principal); E03.9 Hypothyroidism, unspecified; F31.9 Bipolar disorder, unspecified; R06.02 Shortness of breath; F43.10 Post-traumatic stress disorder, unspecified; X58.XXXA Exposure to other specified factors, initial encounter; Y92.9 Unspecified place or not applicable
CPT/HCPCS: 36415; 71045; 80053; 81003; 84439; 84443; 84481; 84484; 85025; 93005; 96360; 99284; J7030

== ENCOUNTER 2019-08-25 14:16 | Emergency (ER) | payer MEDICARE ==
[~2019-08-25] VITALS: Ht 170.2 cm; Wt 62.6 kg
[~2019-08-25 14:16] MED LIST changes: +LAMICTAL100 MG ORAL
--- NOTE | 2019-08-25 14:30 | NUR ---
ED Nurse Note: Pt walked in from home c/o intermittent generalized weakness x eight months. Respirations even and unlabored on room air. Vitals stable as documented.
[2019-08-25 15:03] LABS: BASOPHILS % (AUTO) 1.2 % (0.0-2.0); EOSINOPHILS % (AUTO) 3.1 % (0.0-3.0); HEMATOCRIT 42.1 % (37.0-47.0); HEMOGLOBIN 12.9 G/DL (12.0-16.0); LYMPHOCYTES % (AUTO) 37.8 % (20.0-45.0); MEAN CORPUSCULAR VOLUME 85 FL (80-99); MONOCYTES % (AUTO) 7.3 % (1.0-10.0); NEUTROPHILS % (AUTO) 50.5 % (45.0-75.0); PLATELET COUNT 242 K/UL (150-450); RED BLOOD COUNT 4.96 M/UL (4.20-5.40); RED CELL DISTRIBUTION WIDTH 13.8 % (11.6-14.8); WHITE BLOOD COUNT 6.4 K/UL (4.8-10.8)
[2019-08-25 15:14] VITALS: BP 128/74
[2019-08-25 15:15] LABS: ANION GAP 11 mmol/L (5-15); BLOOD UREA NITROGEN 26 mg/dL (7-18); CALCIUM 9.4 MG/DL (8.5-10.1); CARBON DIOXIDE 27 MMOL/L (21-32); CHLORIDE 103 MMOL/L (98-107); CREATININE 1.5 MG/DL (0.55-1.30); POTASSIUM 4.4 MMOL/L (3.5-5.1); SODIUM 141 MMOL/L (136-145)
--- NOTE | 2019-08-25 15:16 | NUR ---
ED Nurse Note: per pt, she received COVID-19 test results right now and it is negative
[2019-08-25 15:27] LABS: ALANINE AMINOTRANSFERASE 31 U/L (12-78); ALBUMIN 4.6 G/DL (3.4-5.0); ALBUMIN/GLOBULIN RATIO 1.3 (1.0-2.7); ALKALINE PHOSPHATASE 85 U/L (46-116); ASPARTATE AMINO TRANSFERASE 30 U/L (15-37); BILIRUBIN,TOTAL 0.5 MG/DL (0.2-1.0); CREATINE KINASE 344 U/L (26-308)
--- NOTE | 2019-08-25 15:28 | NUR ---
ED Nurse Note: urine sent to lab
[2019-08-25 15:39] LABS: APPEARANCE,URINE CLEAR; BILIRUBIN, URINE NEGATIVE (NEGATIVE); COLOR,URINE PALE YELLOW; GLUCOSE, URINE (UA) NEGATIVE (NEGATIVE); KETONES,URINE NEGATIVE (NEGATIVE); LEUKOCYTE ESTERASE ,URINE NEGATIVE (NEGATIVE); NITRITE,URINE NEGATIVE (NEGATIVE); PH,URINE 6.5 (4.5-8.0); PROTEIN,URINE NEGATIVE (NEGATIVE); UROBILINOGEN,URINE NORMAL MG/DL (0.0-1.0)
[2019-08-25] MEDS ORDERED: Ketorolac 30mg Inj IV ONE (16:00)
--- NOTE | 2019-08-25 16:35 | NUR ---
ED Nurse Note: pt in CT
--- NOTE | 2019-08-25 16:41 | NUR ---
ED Nurse Note: pt back from CT
[2019-08-25 17:25] VITALS: BP 122/79
--- NOTE | 2019-08-25 17:27 | Diagnostic Imaging Report ---
Indications: Headache Technique: Spiral acquisitions obtained through the brain. Angled axial and coronal 5 x 5 mm slices were reconstructed. Total dose length product 992 mGycm. CTDI vol(s) 53 mGy. Dose reduction achieved using automated exposure control Comparison: None. Findings: There is age-related enlargement of the frontal and anterior parietal extra axial CSF spaces. Normal size ventricles. No acute intracranial hemorrhage or edema. No mass effect nor midline shift. Normal boswell-white differentiation. Intact calvarium. Visualized orbits and sinuses are unremarkable. Impression: Age-related frontal volume loss Negative for acute intracranial bleed or mass effect. The CT scanner at [facility] is accredited by the [employer] and the scans are performed using protocols designed to limit radiation exposure to as low as reasonably achievable to attain images of sufficient resolution adequate for diagnostic evaluation.
[2019-08-25 17:40] VITALS: BP 125/88
--- NOTE | 2019-08-25 19:19 | Emergency Room Report ---
History of Present Illness General Chief Complaint: Generalized Weakness Present Illness HPI Patient is a 63-year-old female who presents after increased generalized weakness. She reports having prior history of PTSD as well as bipolar disorder. She had previously been worked up by primary care physician. She reports having episode of falling several months ago. Reports having some increased difficulty with speech earlier this morning. Denies any fever or cough. She reports having 2- coronavirus test recently. She was recently released from [facility] in [place] for psychiatric disease. Denies any vomiting. Had reportedly been drinking normal amounts of fluid. Had stated that she had some increased swelling to her feet. Patient states that she had been having increased feeling of weakness all over. Denies any localized problem with this. 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 Patient History Past Medical History: see triage record Now: No Reviewed Nursing Documentation: PMH: Agreed; PSxH: Agreed Nursing Documentation-PMH Hx Gastrointestinal Problems: Yes - gastritis Review of Systems All Other Systems: negative except mentioned in HPI Physical Exam Vital Signs Date Time Temp Pulse Resp B/P (MAP) Pulse Ox O2 Delivery O2 Flow Rate FiO2 08/25/19 14:29 98.1 76 18 133/76 (95) 98 Room Air Sp02 EP Interpretation: reviewed, normal General Appearance: normal inspection, well appearing, no apparent distress, alert, GCS 15, Chronically Ill Head: atraumatic ENT: normal ENT inspection, hearing grossly normal, normal voice Neck: normal inspection, full range of motion, supple, no bony tend Respiratory: normal inspection, lungs clear, normal breath sounds, no respiratory distress, no retraction, no wheezing Cardiovascular #1: regular rate, rhythm, no edema Gastrointestinal: normal inspection, normal bowel sounds, non tender, soft, no guarding, no hernia Genitourinary: no CVA tenderness Musculoskeletal: normal inspection, back normal, normal range of motion Neurologic: alert, motor strength/tone normal, orchid transplanter III-XII nml as tested, oriented x3, responsive, speech normal, normal inspection Psychiatric: normal inspection, judgement/insight normal, mood/affect normal Medical Decision Making Diagnostic Impression: Primary Impression: Weakness Additional Impressions: Elevated C-reactive protein (CRP) Dehydration ER Course Patient presented for generalized weakness. Differential diagnosis include was not limited to electrolyte abnormality, myocardial injury, CVA, medication reaction among others. Because of complexity of patient's case laboratory tests and imaging studies were ordered. EKG interpreted by me showed normal sinus rhythm without acute ST or T wave changes. CT of the head read by radiology showed atrophic changes without evident intracranial hemorrhage. Laboratory testing showed some elevation of the BUN creatinine consistent with dehydration. Patient given IV fluids. She was noted to have improvement in her overall weakness. Patient does not appear to have any evidence of acute neurologic deficit. Patient is ambulatory without assistance at the time of discharge and had good mental status. Did not appear to have any evidence of acute psychiatric disease at the time of visit. CRP was noted to be somewhat elevated and patient appears to be stable for outpatient evaluation and work- up. The patient is advised to follow up with primary care doctor. Patient is advised to return if any worsening condition or if any changes in status that are concerning. This report is dictated with [employer] prefitter doors software which may occasionally lead to discrepancies related to use of this software. Labs Test 08/25/19 14:55 08/25/19 15:25 White Blood Count 6.4 K/UL (4.8-10.8) Red Blood Count 4.96 M/UL (4.20-5.40) Hemoglobin 12.9 G/DL (12.0-16.0) Hematocrit 42.1 % (37.0-47.0) Mean Corpuscular Volume 85 FL (80-99) Mean Corpuscular Hemoglobin 26.0 PG (27.0-31.0) Mean Corpuscular Hemoglobin Concent 30.5 G/DL (32.0-36.0) Red Cell Distribution Width 13.8 % (11.6-14.8) Platelet Count 242 K/UL (150-450) Mean Platelet Volume 7.0 FL (6.5-10.1) Neutrophils (%) (Auto) 50.5 % (45.0-75.0) Lymphocytes (%) (Auto) 37.8 % (20.0-45.0) Monocytes (%) (Auto) 7.3 % (1.0-10.0) Eosinophils (%) (Auto) 3.1 % (0.0-3.0) Basophils (%) (Auto) 1.2 % (0.0-2.0) Sodium Level 141 MMOL/L (136-145) Potassium Level 4.4 MMOL/L (3.5-5.1) Chloride Level 103 MMOL/L (98-107) Carbon Dioxide Level 27 MMOL/L (21-32) Anion Gap 11 mmol/L (5-15) Blood Urea Nitrogen 26 mg/dL (7-18) Creatinine 1.5 MG/DL (0.55-1.30) Estimat Glomerular Filtration Rate 34.9 mL/min (>60) Glucose Level 100 MG/DL (74-106) Calcium Level 9.4 MG/DL (8.5-10.1) Total Bilirubin 0.5 MG/DL (0.2-1.0) Aspartate Amino Transf (AST/SGOT) 30 U/L (15-37) Alanine Aminotransferase (ALT/SGPT) 31 U/L (12-78) Alkaline Phosphatase 85 U/L (46-116) Total Creatine Kinase 344 U/L (26-308) Troponin I 0.000 ng/mL (0.000-0.056) C-Reactive Protein, Quantitative 1.3 mg/dL (0.00-0.90) Total Protein 8.2 G/DL (6.4-8.2) Albumin 4.6 G/DL (3.4-5.0) Globulin 3.6 g/dL Albumin/Globulin Ratio 1.3 (1.0-2.7) Lipase 271 U/L (73-393) Thyroid Stimulating Hormone (TSH) 2.506 uiU/mL (0.358-3.740) Urine Color Pale yellow Urine Appearance Clear Urine pH 6.5 (4.5-8.0) Urine Specific [place] 1.010 (1.005-1.035) Urine Protein Negative (NEGATIVE) Urine Glucose (UA) Negative (NEGATIVE) Urine Ketones Negative (NEGATIVE) Urine Blood Negative (NEGATIVE) Urine Nitrite Negative (NEGATIVE) Urine Bilirubin Negative (NEGATIVE) Urine Urobilinogen Normal MG/DL (0.0-1.0) Urine Leukocyte Esterase Negative (NEGATIVE) Urine RBC 0 /HPF (0 - 2) Urine WBC 0-2 /HPF (0 - 2) Urine Squamous Epithelial Cells Occasional /LPF Urine Bacteria Occasional /HPF (NONE) EKG Diagnostic Results Rate: normal Rhythm: NSR ST Segments: no acute changes Last Vital Signs Date Time Temp Pulse Resp B/P (MAP) Pulse Ox O2 Delivery O2 Flow Rate FiO2 08/25/19 17:40 98.1 84 18 125/88 98 Room Air Status: improved Disposition: HOME, SELF-CARE Condition: Stable Patient Instructions: Weakness Additional Instructions: Follow up with your doctor for recheck. Return if worse or localized weakness or other concerns. Serge Sunshine MD Aug 25, 2019 19:19
== END 2019-08-25 17:40 | disposition home or self-care (01) ==
LOC: EDBD → EMR 14:59
DX: R53.1 Weakness (principal); E86.0 Dehydration; R79.82 Elevated C-reactive protein (CRP); F31.9 Bipolar disorder, unspecified
CPT/HCPCS: 36415; 70450; 80053; 81001; 82550; 83690; 84443; 84484; 85025; 86140; 93005; 96374; 99284; J1885; J7040

== ENCOUNTER 2019-08-30 06:42 | Observation (INO) | payer MEDICARE ==
[~2019-08-30] VITALS: Ht 170.2 cm; Wt 63.5 kg
--- NOTE | 2019-08-30 06:58 | NUR ---
ED Nurse Note: Pt walked in c/o bilateral lower extremity pain. Pt stated she is taking Terzosin 10mg nightly for 4 days and pain. Pt stated she was in ER for similar pain and was dx with rx. Pt AAOX4, verbally reponsive. No SOB. ERMD at bedside.
--- NOTE | 2019-08-30 07:00 | NUR ---
ED Nurse Note: Received patient in bed. patient on a drywall carrier. Dr. Alvares at bedside.
[2019-08-30] MEDS ORDERED: Ketorolac 30mg Inj IV ONE ×2 (07:30→09:30)
--- NOTE | 2019-08-30 07:30 | NUR ---
ED Nurse Note: While RN was looking for an IV on the right lower extremity, patient reported that she noticed something on the left side of the right hand. RN assessed, noticed a bruise, mainly dark purple color on the left side of the right hand, which appears to be an old bruise. patient reports that was not there when she came to ED.
--- NOTE | 2019-08-30 07:41 | NUR ---
ED Nurse Note: RN asked if it's ok to start an IV on the right hand, patient was here at [facility] on 08/29/19 and got an IV on the left hand yesterday. patient gave verbal consent that it's ok. patient reports "my veins are small and have troubles."" Patient's IV started on the right side of right hand 22G, IV fluid is infusing as ordered without complication. RN notified to Dr. Alvares about the bruise on the left side of the right hand. Dr. Alvares at bedside assessing the patient. received verbal order to provide warm compress on the left side of the right hand after IVF is done.
--- NOTE | 2019-08-30 08:00 | NUR ---
ED Nurse Note: patient provided with blankets. IVF infusing without complication.
--- NOTE | 2019-08-30 08:38 | Emergency Room Report ---
History of Present Illness General Chief Complaint: Lower Extremity Injury Source: Patient Present Illness HPI 63-year-old female presents with leg pain and swelling. Patient states that she was seen here yesterday for this. Noticed swelling in the right leg yesterday and now has some swelling in the left leg. Patient had x-rays and ultrasound yesterday which were normal. Patient states she has history of PTSD. Was just started on terazosin for her symptoms and believes this is a side effect to her medication. Pain is throbbing, 10 out of 10, nonradiating. Denies fevers or chills. Denies chest pain or shortness of breath. No other aggravating relieving factors. 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 Patient History Past Surgical History: none Pertinent Family History: none Social History: Denies: smoking, alcohol use, drug use Now: No Immunizations: UTD Reviewed Nursing Documentation: PMH: Agreed; PSxH: Agreed Nursing Documentation-PMH Hx Gastrointestinal Problems: Yes - gastritis Review of Systems All Other Systems: negative except mentioned in HPI Physical Exam Vital Signs Date Time Temp Pulse Resp B/P (MAP) Pulse Ox O2 Delivery O2 Flow Rate FiO2 08/30/19 06:57 98.4 72 16 132/70 (90) 99 Room Air Sp02 EP Interpretation: reviewed, normal General Appearance: alert, GCS 15, non-toxic, mild distress Head: normocephalic, atraumatic Eyes: bilateral eye normal inspection, bilateral eye PERRL ENT: hearing grossly normal, normal pharynx, no angioedema, normal voice Neck: full range of motion, supple/symm/no masses Respiratory: chest non-tender, lungs clear, normal breath sounds, speaking full sentences Cardiovascular #1: regular rate, rhythm, no edema Cardiovascular #2: 2+ carotid (R), 2+ carotid (L), 2+ radial (R), 2+ radial (L) , 2+ dorsalis pedis (R), 2+ dorsalis pedis (L) Gastrointestinal: normal bowel sounds, non tender, soft, non-distended, no guarding, no rebound Rectal: deferred Genitourinary: normal inspection, no CVA tenderness Musculoskeletal: back normal, normal range of motion, gait/station normal, swelling - RLE Neurologic: alert, motor strength/tone normal, oriented x3, sensory intact, responsive, speech normal Psychiatric: memory normal, no suicidal/homicidal ideation, anxious Reflexes: 3+ bicep (R), 3+ bicep (L), 3+ tricep (R), 3+ tricep (L), 3+ knee (R) , 3+ knee (L) Skin: no rash Lymphatic: no adenopathy Medical Decision Making Diagnostic Impression: Primary Impression: Adverse reaction to drug Qualified Codes: T50.905A - Adverse effect of unspecified drugs, medicaments and biological substances, initial encounter Additional Impressions: PTSD (post-traumatic stress disorder) Peripheral edema Unsteady gait ER Course Hospital Course 63-year-old female presenting to ED with generalized weakness, unsteady gait, leg swelling Differential diagnoses include: anxiety, dehydration, failure to thrive Clinical course Patient placed on stretcher. On equipment monitor phototypesetting. After initial history and physical, I ordered IV fluids and Toradol She was seen here yesterday for same complaint. Has been seen here now 3 times in 4 days. Yesterday right knee x-ray performed negative. Venous duplex negative. I discussed these findings with the patient. Patient became very upset and agitated screaming and yelling when I started asking her questions about her prior care. Patient was very rude to staff including myself and the nurses. Patient disclosed that she has been taking terazosin recently started for PTSD. On Seroquel already. Side effects of terazosin include dizziness and leg swelling. On reevaluation patient states pain is improved somewhat but she still feels unsteady to walk even with a walker. Patient states she has been very unhappy with her primary physician and is switching primary physicians. Discussed with Dr. Marie (psychiatry). Recommends that we discontinue terazosin and we will start risperdal. Patient is requesting admission. Insurance was offering transfer to a rehab facility which patient declined. Patient will be admitted here. Labs - no leukocytosis, hb/hct stable, BUN elevated, Cr wnl Case discussed with Dr Santiago and they agreed to admit patient to their service for further care and support I feel this is a highly complex case requiring extensive working including EKG/ Rhythm strip, Xray/CT/US, Blood/urine lab work, repeat exams while in ED, and administration of strong opiates/narcotics for pain control, admission to hospital or close patient follow up. Diagnosis - adverse reaction to drug, PTSD, peripheral edema, unsteady gait Patient admitted to floor in serious condition Labs Test 08/30/19 10:50 White Blood Count 6.7 K/UL (4.8-10.8) Red Blood Count 3.94 M/UL (4.20-5.40) Hemoglobin 10.4 G/DL (12.0-16.0) Hematocrit 33.1 % (37.0-47.0) Mean Corpuscular Volume 84 FL (80-99) Mean Corpuscular Hemoglobin 26.3 PG (27.0-31.0) Mean Corpuscular Hemoglobin Concent 31.3 G/DL (32.0-36.0) Red Cell Distribution Width 13.9 % (11.6-14.8) Platelet Count 221 K/UL (150-450) Mean Platelet Volume 7.2 FL (6.5-10.1) Neutrophils (%) (Auto) 51.5 % (45.0-75.0) Lymphocytes (%) (Auto) 36.0 % (20.0-45.0) Monocytes (%) (Auto) 7.8 % (1.0-10.0) Eosinophils (%) (Auto) 3.1 % (0.0-3.0) Basophils (%) (Auto) 1.6 % (0.0-2.0) Sodium Level 139 MMOL/L (136-145) Potassium Level 4.4 MMOL/L (3.5-5.1) Chloride Level 109 MMOL/L (98-107) Carbon Dioxide Level 21 MMOL/L (21-32) Anion Gap 9 mmol/L (5-15) Blood Urea Nitrogen 21 mg/dL (7-18) Creatinine 1.3 MG/DL (0.55-1.30) Estimat Glomerular Filtration Rate 41.3 mL/min (>60) Glucose Level 110 MG/DL (74-106) Calcium Level 8.4 MG/DL (8.5-10.1) Total Bilirubin 0.3 MG/DL (0.2-1.0) Aspartate Amino Transf (AST/SGOT) 21 U/L (15-37) Alanine Aminotransferase (ALT/SGPT) 22 U/L (12-78) Alkaline Phosphatase 64 U/L (46-116) Pro-B-Type Natriuretic Peptide 110 pg/mL (0-125) Total Protein 6.6 G/DL (6.4-8.2) Albumin 3.3 G/DL (3.4-5.0) Globulin 3.3 g/dL Albumin/Globulin Ratio 1.0 (1.0-2.7) Last Vital Signs Date Time Temp Pulse Resp B/P (MAP) Pulse Ox O2 Delivery O2 Flow Rate FiO2 08/30/19 06:57 98.4 72 16 132/70 (90) 99 Room Air Status: improved Disposition: ADMITTED INPATIENT Condition: Serious Scripts Acetaminophen With Codeine (T#3) (TYLENOL #3 TAB*) Y Tab 1 TAB ORAL Q6HR PRN for For Pain, #12 TAB Prov: Bolivar Alvares MD 08/30/19 Risperidone* (RISPERDAL*) 1 Mg Tablet 1 MG PO DAILY, #10 TAB Prov: Bolivar Alvares MD 08/30/19 Referrals: [facility] (PCP) Bolivar Alvares MD Aug 30, 2019 08:38
--- NOTE | 2019-08-30 08:40 | NUR ---
ED Nurse Note: patient provided with warm blankets.
[2019-08-30] MEDS ORDERED: TERAZOSIN HCL1 MG ORAL (08:44)
[2019-08-30] MEDS ORDERED: Tylenol #3 tab (300mg/30mg) ORAL ONE ×2 (09:30→09:45)
[2019-08-30] MEDS ORDERED: Morphine Sulfate 4mg/ml Inj (IV USE ONLY) IVP ONE (09:45)
--- NOTE | 2019-08-30 10:10 | NUR ---
ED Nurse Note: patient reports pain on bilateral leg to ambulate. RN offered bedside commode, patient declined. patient was able to use restroom by herself, wheelchair assistance provided to the wheelchair.
--- NOTE | 2019-08-30 10:15 | NUR ---
ED Nurse Note: patient tolerated pain medication without complication. patient provided with more warm blankets. patient provided with a bedside table, tuna sandwich and water.
[2019-08-30] MEDS ORDERED: PROTONIX20 MG ORAL (10:36)
[2019-08-30 11:10] LABS: BASOPHILS % (AUTO) 1.6 % (0.0-2.0); EOSINOPHILS % (AUTO) 3.1 % (0.0-3.0); HEMATOCRIT 33.1 % (37.0-47.0); HEMOGLOBIN 10.4 G/DL (12.0-16.0); MEAN CORPUSCULAR VOLUME 84 FL (80-99); MONOCYTES % (AUTO) 7.8 % (1.0-10.0); NEUTROPHILS % (AUTO) 51.5 % (45.0-75.0); PLATELET COUNT 221 K/UL (150-450); RED BLOOD COUNT 3.94 M/UL (4.20-5.40); RED CELL DISTRIBUTION WIDTH 13.9 % (11.6-14.8); WHITE BLOOD COUNT 6.7 K/UL (4.8-10.8)
[2019-08-30 11:16] LABS: ANION GAP 9 mmol/L (5-15); BLOOD UREA NITROGEN 21 mg/dL (7-18); CALCIUM 8.4 MG/DL (8.5-10.1); CARBON DIOXIDE 21 MMOL/L (21-32); CHLORIDE 109 MMOL/L (98-107); CREATININE 1.3 MG/DL (0.55-1.30); POTASSIUM 4.4 MMOL/L (3.5-5.1); SODIUM 139 MMOL/L (136-145)
[2019-08-30 11:20] LABS: ALANINE AMINOTRANSFERASE 22 U/L (12-78); ALBUMIN 3.3 G/DL (3.4-5.0); ALKALINE PHOSPHATASE 64 U/L (46-116); ASPARTATE AMINO TRANSFERASE 21 U/L (15-37); BILIRUBIN,TOTAL 0.3 MG/DL (0.2-1.0)
--- NOTE | 2019-08-30 11:43 | NUR ---
ED Nurse Note: patient resting comfortably in bed, receiving IVF without complication.
--- NOTE | 2019-08-30 11:54 | NUR ---
ED Nurse Note: informed patient that patient would be transferred out due to insurance, patient reports "I don't need anyone to watch over me, I don't have pain on my legs anymore. I don't want to go usp, let's see if I can walk and if I don't have pain and I can walk, then I can go home." informed Dr. Alvares.
--- NOTE | 2019-08-30 13:00 | NUR ---
ED Nurse Note: patient provided with a walker and instructions to use walker. patient able to use it and walk with it without complications. patient ambulated with a walker by herself to the restroom as well. Dr. Alvares at bedside assessing patient ambulate as a walker.
[2019-08-30] MEDS ORDERED: ACETAMINOPHEN-1 EAC1 ORAL (13:57)
[2019-08-30] MEDS ORDERED: RISPERDAL1 MG PO (13:57)
[2019-08-30] MEDS ORDERED: Mylanta II UD 30ml ORAL PRN (14:45)
--- NOTE | 2019-08-30 15:00 | NUR ---
ED Nurse Note: Report given to Dewey ZHENG.
--- NOTE | 2019-08-30 15:10 | NUR ---
ED Nurse Note: patient transferred to with all of her belongings in [facility] with Serge MARC. endorsed all plan of care to Dewey ZHENG
--- NOTE | 2019-08-30 15:20 | NUR ---
NURSE NOTES: Received report from RNAmanda from ED. Pt received to room via [place]. Pt was able to ambulate using a FWW from [facility] to hospital bed. Pt is AAO x 4, able to make needs known, on RA with no s/s of respiratory distress. VSS stable but pt has c/o pain at 10/10 on RLE and 5/10 on LLE. Pt is independent with ADLs. On regular diet. Continent to bowel and bladder fx, LBM this AM 08/30/19. Skin intact with mild swelling to RLE. PIV to R hand 22g saline lock. Reconciled belongings and belongings list was signed by pt in ED. Pt has home medications x 4 brought from home which RN sent to pharmacy for safekeeping. Pt oriented to unit and room. Fall precautions discussed. Bed in lowest position, bed alarm on, call light kept within reach. Orders received for patient to be admitted under observation. Will continue POC.
[2019-08-30] MEDS: Hydromorphone 0.5mg/0.5ml inj IVP PRN ×2 (15:51→21:40)
[2019-08-30 16:00] VITALS: BP 158/79
--- NOTE | 2019-08-30 17:14 | History and Physical ---
History of Present Illness General Date patient seen: Aug 30, 2019 Time patient seen: 16:50 Reason for Hospitalization: Lower Extremity Injury Present Illness HPI 63 year old woman with history of bipolar depression, PTSD, hypothyroidism who present to ED with right leg pain and swelling x 2 days. She also difficulty ambulating, exertional dyspnea. Patient had x-rays and ultrasound yesterday in the ED which were normal and was sent home She was recently admitted to inpatient psych at [facility] for 5 days, was started on terazosin for her PTSD symptoms and believes her presenting symptoms are a side effect of that medication. Pain is throbbing, 10 out of 10, nonradiating. Improved with hydromorphone. Patient referred for admission due to gait instability Allergies: Coded Allergies: No Known Allergies (Unverified , 12/16/11) COVID-19 Screening Contact w/high risk pt: No Recent Travel to affected area: No Experienced COVID-19 symptoms?: No COVID-19 symptoms experienced: Shortness of Breath Medication History Scheduled Lamotrigine* (Lamictal*), 100 MG ORAL DAILY, (Reported) Levothyroxine Sodium* (Synthroid*), 50 MCG ORAL DAILY, (Reported) Pantoprazole Sodium (Protonix), 10 MG ORAL DAILY, (Reported) Quetiapine Fumarate* (Seroquel*), 200 MG ORAL DAILY, (Reported) Risperidone* (Risperdal*), 1 MG PO DAILY Terazosin Hcl* (Hytrin*), 10 MG ORAL BEDTIME, (Reported) Scheduled PRN Acetaminophen With Codeine (T#3) (Tylenol #3 Tab*), 1 TAB ORAL Q6HR PRN for For Pain Patient History Healthcare decision maker Resuscitation status Advanced Directive on File Review of Systems Constitutional: Denies: chills, fever Eye: Denies: eye pain, blurred vision ENT: Denies: ear pain Respiratory: Denies: cough Cardiovascular: Denies: chest pain Gastrointestinal: Denies: abdominal pain, constipation Genitourinary: Denies: discharge, dysuria Musculoskeletal: Denies: back pain, gout Skin: Denies: rash Neurological: Denies: headache Endocrine: Denies: excessive sweating Hematologic/Lymphatic: Denies: anemia Physical Exam General Appearance: no apparent distress, alert HEENT: atraumatic, anicteric Neck: normal alignment, supple, normal inspection Respiratory/Chest: lungs clear, normal breath sounds Cardiovascular/Chest: normal rate, regular rhythm Abdomen: non tender, soft Extremities: non-tender, normal inspection, no calf tenderness, no edema 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, alert, oriented x 3, responsive, normal mood/affect Last 24 Hour Vital Signs Date Time Temp Pulse Resp B/P (MAP) Pulse Ox O2 Delivery O2 Flow Rate FiO2 08/30/19 16:00 96.6 60 16 158/79 (105) 98 08/30/19 15:42 Room Air 08/30/19 10:21 98.5 08/30/19 09:58 98.5 08/30/19 08:11 98.5 08/30/19 06:57 98.4 72 16 132/70 (90) 99 Room Air Laboratory Tests Test 08/30/19 10:50 White Blood Count 6.7 K/UL (4.8-10.8) Red Blood Count 3.94 M/UL (4.20-5.40) L Hemoglobin 10.4 G/DL (12.0-16.0) L Hematocrit 33.1 % (37.0-47.0) L Mean Corpuscular Volume 84 FL (80-99) Mean Corpuscular Hemoglobin 26.3 PG (27.0-31.0) L Mean Corpuscular Hemoglobin Concent 31.3 G/DL (32.0-36.0) L Red Cell Distribution Width 13.9 % (11.6-14.8) Platelet Count 221 K/UL (150-450) # Mean Platelet Volume 7.2 FL (6.5-10.1) Neutrophils (%) (Auto) 51.5 % (45.0-75.0) Lymphocytes (%) (Auto) 36.0 % (20.0-45.0) Monocytes (%) (Auto) 7.8 % (1.0-10.0) Eosinophils (%) (Auto) 3.1 % (0.0-3.0) H Basophils (%) (Auto) 1.6 % (0.0-2.0) Sodium Level 139 MMOL/L (136-145) Potassium Level 4.4 MMOL/L (3.5-5.1) Chloride Level 109 MMOL/L (98-107) H Carbon Dioxide Level 21 MMOL/L (21-32) Anion Gap 9 mmol/L (5-15) Blood Urea Nitrogen 21 mg/dL (7-18) H Creatinine 1.3 MG/DL (0.55-1.30) Estimat Glomerular Filtration Rate 41.3 mL/min (>60) Glucose Level 110 MG/DL (74-106) H Calcium Level 8.4 MG/DL (8.5-10.1) L Total Bilirubin 0.3 MG/DL (0.2-1.0) Aspartate Amino Transf (AST/SGOT) 21 U/L (15-37) Alanine Aminotransferase (ALT/SGPT) 22 U/L (12-78) Alkaline Phosphatase 64 U/L (46-116) Total Protein 6.6 G/DL (6.4-8.2) Albumin 3.3 G/DL (3.4-5.0) L Globulin 3.3 g/dL Albumin/Globulin Ratio 1.0 (1.0-2.7) Height (Feet): 5 Height (Inches): 7.00 Weight (Pounds): 140 Medications Current Medications Medications (Trade) Dose Ordered Sig/Ward Route PRN Reason Start Time Stop Time Status Last Admin Dose Admin Acetaminophen (Tylenol) 650 mg Q4H PRN ORAL Mild Pain (Pain Scale 1-3) 08/30/19 14:45 09/29/19 14:44 Al Hydroxide/Mg Hydroxide (Mylanta II) 30 ml Q6H PRN ORAL dyspepsia 08/30/19 14:45 09/29/19 14:44 Dextrose (Dextrose 50%) 25 ml Q30M PRN IV Hypoglycemia 08/30/19 14:45 11/28/19 14:44 Dextrose (Dextrose 50%) 50 ml Q30M PRN IV Hypoglycemia 08/30/19 14:45 11/28/19 14:44 Diphenhydramine HCl (Benadryl) 25 mg Q6H PRN ORAL Itching/Pruritis 08/30/19 14:45 09/29/19 14:44 Docusate Sodium (Colace) 100 mg EVERY 12 HOURS ORAL 08/30/19 21:00 09/29/19 20:59 Heparin Sodium (Porcine) (Heparin 5000 units/ml) 5,000 units EVERY 12 HOURS SUBQ 08/30/19 21:00 10/14/19 20:59 Hydromorphone HCl (Dilaudid) 0.5 mg Q4H PRN IVP Severe Pain (Pain Scale 7-10) 08/30/19 14:45 09/06/19 14:44 08/30/19 15:51 Lamotrigine (LaMICtal) 100 mg DAILY ORAL 08/31/19 09:00 09/30/19 08:59 Levothyroxine Sodium (Synthroid) 50 mcg ACBREAKFAST ORAL 08/31/19 06:30 09/30/19 06:29 Ondansetron HCl (Zofran) 4 mg Q6H PRN IVP Nausea & Vomiting 08/30/19 14:45 09/29/19 14:44 Pantoprazole (Protonix) 40 mg DAILY ORAL 08/31/19 09:00 09/30/19 08:59 Quetiapine Fumarate (SEROqueL) 200 mg DAILY ORAL 08/31/19 09:00 10/15/19 08:59 Risperidone (RisperDAL) 1 mg DAILY ORAL 08/31/19 09:00 10/15/19 08:59 Assessment/Plan Assessment/Plan: 63 year old woman with hypothyroidism, bipolar, depression, PTSD who presents with subjective RLE swelling, pain, difficulty ambulating, dyspnea on exertion. Recently started on terazosin for psychiatry symptoms #Subjective LE swelling and pain #Exertional dyspnea #Difficulty ambulating due to above #Depression #Bipolar disorder #PTSD #Hypothyroidism -place patient in observation -PT eval -Check BNP and TTE to eval for CHF -check ambulatory saturation on room -check orthostatic vitals -Hold terazosin -continue lamictal -continue Seroquel and risperidone -Supportive care with anti-emetics, analgesics -continue levothyroxine -VTE PPx HSQ Code Status: Full I spent 72 minutes on this patient's case, and 40 minutes was dedicated to counseling and/or care coordination with ED team, RN, PCP, consulting MDs I spent an additional 36 minutes on review of medical records including prior outside records, consult notes, progress notes, procedures, imaging, labs, hemodynamics, and other clinical documentation. Johnnie Jacob MD Aug 30, 2019 17:14
--- NOTE | 2019-08-30 19:08 | NUR ---
HAND-OFF: Report given to MARCE Erazo. POC endorsed.
--- NOTE | 2019-08-30 19:20 | NUR ---
NURSE NOTES: Received report from lisa dowling. patient is on bed, awake. verbally responsive. room air. no sob. per nitesh, patient has ptsd and she got easily got anxious". with iv line on the right hand, saline lock. with walker on the bedside. bed locked and in lowest position. call light and light button within easy reach. will continue plan of care
[2019-08-30 20:00] VITALS: BP 121/68
[2019-08-30] MEDS: Heparin 5000 units/ml inj SUBQ SCH (20:50)
[2019-08-30] MEDS: Docusate 100mg cap ORAL SCH (20:50)
[2019-08-31] VITALS: BP 102/60
--- NOTE | 2019-08-31 00:26 | NUR ---
NURSE NOTES: patient wake up screaming. per patient" she's having flashbacks. she thought that someone is standing in front of her". advised to do breathing exercises. re-assured patient that no man is on the room. patient went back to sleep.
[2019-08-31] MEDS: Hydromorphone 0.5mg/0.5ml inj IVP PRN (02:17)
[2019-08-31 04:00] VITALS: BP 119/65
--- NOTE | 2019-08-31 07:14 | NUR ---
NURSE NOTES: Received report from Kacey ZHENG. Pt is AAO x 4, able to make needs known, on RA with no s/s of respiratory distress. Pt is independent with ADLs but needs supervision during ambulation using FWW. On regular diet. Pt has c/o nausea this AM but subsided within a few minutes. Provided pt ice ships and crackers. Per pt, she feels "much better already." Continent to bowel and bladder fx, LBM this AM 08/30/19. Skin intact. PIV to R hand 22g saline lock. Bed in lowest position, bed alarm on, call light kept within reach. Will continue POC.
--- NOTE | 2019-08-31 07:26 | NUR ---
HAND-OFF: Report given to lisa dowling.patient is asleep, no sob. call light and light button within easy reach. plan of care endorsed
[2019-08-31 08:00] VITALS: BP 128/63
[2019-08-31] MEDS: Docusate 100mg cap ORAL SCH (08:56)
[2019-08-31] MEDS: Heparin 5000 units/ml inj SUBQ SCH (08:57)
--- NOTE | 2019-08-31 10:23 | NUR ---
NURSE NOTES: Patient started eating breakfast and she threw up with food like emesis, no blood or coffee ground colored emesis. Patient was upright position and advertising representative was @ the bedside. No s/s of aspiration or SOB , lung sound is clear. RN offered zofran 4mg IV but patient strongly refused stating " I do not need that medication. I am not nauseous anymore." RN re-educated on medication and remind her to call RN if she needs med. changed her linen.
--- NOTE | 2019-08-31 10:25 | NUR ---
NURSE NOTES: Pt reported having a puffy face and seeing that she doesn't look the same as usual upon looking at herself in the mirror. Notified Dr. Mckee re pt's complaint as well as patient's vomiting episode x 1. acknowledged report. No new orders at this time.
[2019-08-31 12:00] VITALS: BP_SYST 113; BP_SYST 168; BP_DIAS 59; BP_DIAS 96
--- NOTE | 2019-08-31 12:32 | NUR ---
CASE MANAGEMENT: INITIAL REVIEW 63YR OLD FEMALE CC:LOWER EXTREMITY INJURY SI:ADVERSE REACTION TO DRUG . PTSD . PERIPHERAL EDEMA . UNSTEADY GAIT. 98.5 72 16 132/70 99% ON RA CL-109 BUN 21 BG 110 CA+8.4 ALB 3.3 IS:IV TORADOL X2 IVF NS BOLUS X2 IV MORPHINE SULFATE X1 TYLENOL #3 PO X1 \: 4E MED SURG UNIT DCP:HOME WHEN STABLE PLAN: CHECK OXYGEN LEVEL ON RA CASE MANAGEMENT: REVIEW 08/31/19 SI:ADVERSE REACTION TO DRUG . PTSD . PERIPHERAL EDEMA . UNSTEADY GAIT. 99.9 80 19 168/96 97% ON RA IS:HEPARIN SQ BID PROTONIX PO QD SYNTHROID QAM IV DILAUDID Q4HR \: 4E MED SURG UNIT DCP:HOME WHEN STABLE PLAN: CHECK OXYGEN LEVEL ON RA 2D ECHO
--- NOTE | 2019-08-31 14:04 | General Progress Note ---
Assessment/Plan Assessment/Plan: 63 year old woman with hypothyroidism, bipolar, depression, PTSD who presents with subjective RLE swelling, pain, difficulty ambulating, dyspnea on exertion. Recently started on terazosin for psychiatry symptoms #Subjective LE swelling and pain #Exertional dyspnea #Difficulty ambulating due to above #Depression #Bipolar disorder #PTSD #Hypothyroidism -continue observation as she does not meet inpatient level of care -PT eval pending, may need SNF placement -BNP wnl -TTE pending -room air ambulator sat wnl -Orthostatic vitals negative -Hold terazosin -continue lamictal -continue Seroquel and risperidone -Supportive care with anti-emetics, analgesics -continue levothyroxine -VTE PPx HSQ Code Status: Full Subjective Date patient seen: Aug 31, 2019 Time patient seen: 11:02 Constitutional: Denies: chills, fever HEENT: Denies: blurred vision Cardiovascular: Denies: chest pain Respiratory: Denies: cough Gastrointestinal/Abdominal: Denies: abdominal pain Allergies: Coded Allergies: No Known Allergies (Unverified , 12/16/11) Subjective Follow for gait instability, LE pain and subjective edema. No new complaints today. Objective Last 24 Hour Vital Signs Date Time Temp Pulse Resp B/P (MAP) Pulse Ox O2 Delivery O2 Flow Rate FiO2 08/31/19 12:00 99.9 80 19 168/96 (120) 97 08/31/19 09:00 Room Air 08/31/19 08:08 63 66 67 08/31/19 08:00 98.2 77 21 128/63 (84) 99 08/31/19 04:00 97.6 62 16 119/65 (83) 99 08/31/19 02:47 98.4 08/31/19 00:00 98.4 80 16 102/60 (74) 98 08/30/19 21:00 Room Air 08/30/19 20:00 98.1 76 16 121/68 (85) 97 08/30/19 16:00 96.6 60 16 158/79 (105) 98 08/30/19 15:42 Room Air 08/30/19 15:20 98.5 16 132/70 99 Room Air Intake and Output 08/30/19 08/31/19 19:00 07:00 Intake Total 240 ml 550 ml Balance 240 ml 550 ml Intake Oral 240 ml 550 ml # Voids 2 2 Height (Feet): 5 Height (Inches): 7.00 Weight (Pounds): 140 General Appearance: no apparent distress, alert Neck: normal alignment, supple Cardiovascular: normal rate, regular rhythm Respiratory/Chest: lungs clear, normal breath sounds, no respiratory distress Abdomen: non tender, soft Johnnie Jacob MD Aug 31, 2019 14:04
[2019-08-31] MEDS: Metamucil Pkt ORAL SCH ×2 (14:19→18:16)
--- NOTE | 2019-08-31 15:00 | NUR ---
NURSE NOTES: RN spoke to Dr. Mckee to clarify observation status. Dr. Mckee wants to keep her on observation.
--- NOTE | 2019-08-31 15:49 | NUR ---
*-* INSURANCE *-* UPDATED CLINICALS AND REVIEWS HAVE BEEN FAXED TO: [employer] FAX:[phone]
[2019-08-31 16:00] VITALS: BP 139/76
--- NOTE | 2019-08-31 17:27 | NUR ---
PT Note PT karoline completed, treatment initiated. Patient has pain on the right LE, making her gait antalgic. Patient needs PT to increase her muscle strength and balance to improve her safety in mobility and gait to enable her to return home. Addendum: 08/31/19 at 1728 by PETE VILLARREAL PT Amended: Links added.
--- NOTE | 2019-08-31 19:10 | NUR ---
HAND-OFF: Report given to MARCE Erazo. Endorsed POC.
--- NOTE | 2019-08-31 19:25 | NUR ---
NURSE NOTES: Pt came out of her room fully dressed walking without assistance/assistive device with steady gait stating that "I want to go sign myself out AMA. I want to go home, I need a cab, or I'll walk home because obviously you can see that I can do so." Called Dr. Mckee to notify him re patient's preference. MARCE Erazo, also aware of situation. Kacey will follow-up with .
--- NOTE | 2019-08-31 19:50 | NUR ---
NURSE NOTES: received report from lisa dowling. patient is by the station, fully dressed with belongings in a black bag. with iv line on the right hand, saline lock. denies any pain or discomfort. per nitesh gonzalez, patients wants to go AMA and she wants to have the doctor to sign her off. per nitesh, she paged and still waiting for call back. patient states" she wants to leave now". spoke to patient that they just paged doctor and needs to follow up. patient refused to signed AMA and wants the doctor to sign her off. patient refused to go back to the room. paged dr. geo lim, awaiting fro call back. charge nurse made aware of the situation.
--- NOTE | 2019-08-31 19:55 | NUR ---
NURSE NOTES: received a call back from (on-call) dr. dax benton. made aware of the situation and the plan of dr. guardado that she might need to have snf placement. per dr. benton" if the patient wants to leave then she needs to sign the AMA". patient made aware and she agreed to sign the AMA form. belongings list signed. all belongings was with the patient. the medications that she brought upon admission was picked up from the pharmacy. richard(pharmacist) released the medications. the medications was given to the patient. charge nurse made aware.
--- NOTE | 2019-08-31 20:30 | NUR ---
NURSE NOTES: discontinued iv line. no name tag noted. Patient left the hospital with her belongings and medications. charge nurse made aware. Addendum: 08/31/19 at 2352 by Latoya Estrada RN patient came in with a walker. patient refused to take it upon leaving the hospital. patient states" i don't need that, i can walk."charge nurse made aware.
--- NOTE | 2019-08-31 20:40 | NUR ---
NURSE NOTES: dr. guardado put in the order for discharge however patient left the hospital via AMA prior to the discharge order. charge nurse made aware. dr. guardado and dr. benton made aware of the AMA. Addendum: 08/31/19 at 4999 by Latoya Estrada RN will endorsed to the morning in charge regarding her walker.
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
--- NOTE | 2019-09-01 09:59 | NUR ---
*-* INSURANCE *-* NO DISCHARGE SUMMARY IN THE SYSTEM UNABLE TO SEND TO INS [facility].
--- NOTE | 2019-09-02 14:10 | NUR ---
*-* INSURANCE *-* NO DISCHARGE SUMMARY IN THE SYSTEM UNABLE TO SEND TO INS [facility].
--- NOTE | 2019-09-03 10:00 | NUR ---
*-* INSURANCE *-* NO DISCHARGE SUMMARY IN THE SYSTEM UNABLE TO SEND TO INS [facility].
--- NOTE | 2019-09-04 11:27 | NUR ---
*-* INSURANCE *-* NO DISCHARGE SUMMARY IN THE SYSTEM UNABLE TO SEND TO INS [facility].
--- NOTE | 2019-09-05 11:10 | NUR ---
*-* INSURANCE *-* NO DISCHARGE SUMMARY IN THE SYSTEM UNABLE TO SEND TO INS [facility].
== END 2019-08-31 20:40 | disposition left against medical advice (07) ==
LOC: EMR 07:04 → EDBEDREQ 10:29 → 4E 13:56 → EDBEDREQ 14:39 → 4E 08-31 12:00
DX: R60.0 Localized edema (principal); F41.9 Anxiety disorder, unspecified; R06.00 Dyspnea, unspecified; T50.905A Adverse effect of unspecified drugs, medicaments and biological substances, initial encounter; F43.10 Post-traumatic stress disorder, unspecified; X58.XXXA Exposure to other specified factors, initial encounter; Y92.9 Unspecified place or not applicable; R26.81 Unsteadiness on feet; F31.9 Bipolar disorder, unspecified; E03.9 Hypothyroidism, unspecified; Z79.899 Other long term (current) drug therapy; F32.9 Major depressive disorder, single episode, unspecified
CPT/HCPCS: 36415; 80053; 83880; 85025; 93306; 96361; 96374; 96375; 96376; 97116; 97161; 97530; 99285; G0378 ×2; J1170 ×2; J1644; J1885; J7030; J2405

== ENCOUNTER 2019-12-11 05:47 | Emergency (ER) | payer MEDICARE, OTHER ==
[~2019-12-11] VITALS: Ht 170.2 cm; Wt 59.0 kg
[~2019-12-11 05:47] MED LIST changes: +ACETAMINOPHEN-1 EAC1 ORAL; +PROTONIX20 MG ORAL; +RISPERDAL1 MG PO; +TERAZOSIN HCL1 MG ORAL
--- NOTE | 2019-12-11 06:07 | NUR ---
ED Nurse Note: Patient walked into the ED with c/o blood in stool onset 3pm yesterday. PAtient states she was constipated. Patient denies abdominal pain. 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 PAtient denies trauma/injury, denies CP/SOB/, N&V, fever or chills. PAtient is AAOx4 and ambulatory
--- NOTE | 2019-12-11 06:16 | NUR ---
ED Nurse Note: ERMD at bedside
[2019-12-11 06:20] VITALS: BP 142/77
--- NOTE | 2019-12-11 06:40 | NUR ---
ED Nurse Note: Blood sent to lab for workup
--- NOTE | 2019-12-11 06:47 | Emergency Room Report ---
History of Present Illness General Chief Complaint: Gastrointestinal Bleed Source: Patient Present Illness HPI Patient is a 64-year-old female presents for recent onset of diarrheal illness. She reports having eaten a chicken sandwich at [facility]. Subsequently began having increased abdominal cramping as well as watery diarrhea. Patient states that she had some increased generalized weakness as well as cramping. Had previous imaging studies in the past. Had recent fall for which she was taken to [facility]. Had negative imaging studies. Patient denies loss of conscious during fall. She had been evaluated at trauma center. Patient began having i ncreased bowel movements which had become watery and initially were normal. States she had multiple bowel movements today. 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 COVID-19 Screening: Negative COVID-19 COVID-19 Testing Source: @ [facility] Patient History Past Medical History: see triage record Reviewed Nursing Documentation: PMH: Agreed; PSxH: Agreed Nursing Documentation-PMH Past Medical History: No History, Except For Hx Cardiac Problems: No Hx Cancer: No Hx Gastrointestinal Problems: Yes - gastritis, abd hernia Hx Neurological Problems: Yes Hx Weakness: Yes Review of Systems All Other Systems: negative except mentioned in HPI Physical Exam Vital Signs Date Time Temp Pulse Resp B/P (MAP) Pulse Ox O2 Delivery O2 Flow Rate FiO2 12/11/19 05:50 98.2 74 18 142/77 (98) 98 Room Air Sp02 EP Interpretation: reviewed, normal General Appearance: normal inspection, well appearing, no apparent distress, alert, GCS 15 Head: atraumatic ENT: normal ENT inspection, hearing grossly normal, normal voice Neck: normal inspection, full range of motion, supple, no bony tend Respiratory: normal inspection, lungs clear, normal breath sounds, no respiratory distress, no retraction, no wheezing Cardiovascular #1: regular rate, rhythm, no edema Gastrointestinal: normal inspection, normal bowel sounds, non tender, soft, no guarding, no hernia Genitourinary: no CVA tenderness Musculoskeletal: normal inspection, back normal, normal range of motion Neurologic: alert, motor strength/tone normal, sleeve setter III-XII nml as tested, oriented x3, responsive, speech normal, normal inspection Psychiatric: normal inspection, judgement/insight normal, mood/affect normal Medical Decision Making Diagnostic Impression: Primary Impression: Gastroenteritis Additional Impression: PTSD (post-traumatic stress disorder) ER Course Patient presented for increased diarrheal episodes. Differential diagnosis includes not limited to gastroenteritis, colitis, GI bleeding among others. Because of complexity of patient's case laboratory tests and imaging studies were ordered. Patient has an overall benign exam. She does not appear to be significantly dehydrated. Had multiple episodes of reportedly watery diarrhea with some blood when she wipes only. Laboratory testing was unremarkable and patient does not have a significant drop in hemoglobin. Patient appears to be stable for outpatient management. She was given referrals for outpatient mental health although she states she does have a psychiatrist. Patient appears to be safe for discharge and does not appear to have any evidence of acute psychiatric need requiring inpatient hospitalization. She is appear capable of self-care. The patient is advised to follow up with primary care doctor. Patient is advised to return if any worsening condition or if any changes in status that are concerning. This report is dictated with [employer] facility maintenance mechanic software which may occasionally lead to discrepancies related to use of this software. Labs Test 12/11/19 06:20 12/11/19 06:55 White Blood Count 8.0 K/UL (4.8-10.8) Red Blood Count 4.78 M/UL (4.20-5.40) Hemoglobin 12.6 G/DL (12.0-16.0) Hematocrit 37.1 % (37.0-47.0) Mean Corpuscular Volume 78 FL (80-99) Mean Corpuscular Hemoglobin 26.4 PG (27.0-31.0) Mean Corpuscular Hemoglobin Concent 34.1 G/DL (32.0-36.0) Red Cell Distribution Width 13.0 % (11.6-14.8) Platelet Count 220 K/UL (150-450) Mean Platelet Volume 5.9 FL (6.5-10.1) Neutrophils (%) (Auto) 52.9 % (45.0-75.0) Lymphocytes (%) (Auto) 38.9 % (20.0-45.0) Monocytes (%) (Auto) 5.2 % (1.0-10.0) Eosinophils (%) (Auto) 1.1 % (0.0-3.0) Basophils (%) (Auto) 1.9 % (0.0-2.0) Prothrombin Time 10.7 SEC (9.30-11.50) Prothromb Time International Ratio 1.0 (0.9-1.1) Activated Partial Thromboplast Time 24 SEC (23-33) Sodium Level 139 MMOL/L (136-145) Potassium Level 3.7 MMOL/L (3.5-5.1) Chloride Level 104 MMOL/L (98-107) Carbon Dioxide Level 28 MMOL/L (21-32) Blood Urea Nitrogen 15 mg/dL (7-18) Creatinine 1.1 MG/DL (0.55-1.30) Estimat Glomerular Filtration Rate 49.9 mL/min (>60) Glucose Level 116 MG/DL (74-106) Calcium Level 9.4 MG/DL (8.5-10.1) Magnesium Level 2.0 MG/DL (1.8-2.4) Total Bilirubin 0.4 MG/DL (0.2-1.0) Aspartate Amino Transf (AST/SGOT) 42 U/L (15-37) Alanine Aminotransferase (ALT/SGPT) 36 U/L (12-78) Alkaline Phosphatase 78 U/L (46-116) Total Protein 6.6 G/DL (6.4-8.2) Albumin 3.8 G/DL (3.4-5.0) Globulin 2.8 g/dL Albumin/Globulin Ratio 1.4 (1.0-2.7) Lipase 283 U/L (73-393) Urine Color Pale yellow Urine Appearance Clear Urine pH 8 (4.5-8.0) Urine Specific [place] 1.010 (1.005-1.035) Urine Protein Negative (NEGATIVE) Urine Glucose (UA) Negative (NEGATIVE) Urine Ketones Negative (NEGATIVE) Urine Blood Negative (NEGATIVE) Urine Nitrite Negative (NEGATIVE) Urine Bilirubin Negative (NEGATIVE) Urine Urobilinogen Normal MG/DL (0.0-1.0) Urine Leukocyte Esterase Negative (NEGATIVE) Last Vital Signs Date Time Temp Pulse Resp B/P (MAP) Pulse Ox O2 Delivery O2 Flow Rate FiO2 12/11/19 05:50 98.2 74 18 142/77 (98) 98 Room Air Status: improved Disposition: HOME, SELF-CARE Condition: Stable Scripts Dicyclomine Hcl* (DICYCLOMINE HCL*) 10 Mg Capsule 10 MG ORAL QID, #20 CAP Prov: Serge Sunshine MD 12/11/19 Referrals: [facility],REFERRING (PCP) Serge Sunshine MD Dec 11, 2019 06:47
--- NOTE | 2019-12-11 07:01 | NUR ---
ED Nurse Note: Urine sent to lab
[2019-12-11 07:10] LABS: BASOPHILS % (AUTO) 1.9 % (0.0-2.0); EOSINOPHILS % (AUTO) 1.1 % (0.0-3.0); HEMATOCRIT 37.1 % (37.0-47.0); HEMOGLOBIN 12.6 G/DL (12.0-16.0); LYMPHOCYTES % (AUTO) 38.9 % (20.0-45.0); MEAN CORPUSCULAR VOLUME 78 FL (80-99); MONOCYTES % (AUTO) 5.2 % (1.0-10.0); NEUTROPHILS % (AUTO) 52.9 % (45.0-75.0); PLATELET COUNT 220 K/UL (150-450); RED BLOOD COUNT 4.78 M/UL (4.20-5.40)
--- NOTE | 2019-12-11 07:10 | NUR ---
HAND-OFF: Report given to BING ZHENG.
[2019-12-11 07:13] LABS: APPEARANCE,URINE CLEAR; BILIRUBIN, URINE NEGATIVE (NEGATIVE); COLOR,URINE PALE YELLOW; GLUCOSE, URINE (UA) NEGATIVE (NEGATIVE); KETONES,URINE NEGATIVE (NEGATIVE); LEUKOCYTE ESTERASE ,URINE NEGATIVE (NEGATIVE); NITRITE,URINE NEGATIVE (NEGATIVE); PH,URINE 8 (4.5-8.0); PROTEIN,URINE NEGATIVE (NEGATIVE); UROBILINOGEN,URINE NORMAL MG/DL (0.0-1.0)
[2019-12-11 07:38] LABS: ALANINE AMINOTRANSFERASE 36 U/L (12-78); ALBUMIN 3.8 G/DL (3.4-5.0); ALBUMIN/GLOBULIN RATIO 1.4 (1.0-2.7); ALKALINE PHOSPHATASE 78 U/L (46-116); ASPARTATE AMINO TRANSFERASE 42 U/L (15-37); BILIRUBIN,TOTAL 0.4 MG/DL (0.2-1.0); BLOOD UREA NITROGEN 15 mg/dL (7-18); CALCIUM 9.4 MG/DL (8.5-10.1); CHLORIDE 104 MMOL/L (98-107); CREATININE 1.1 MG/DL (0.55-1.30); POTASSIUM 3.7 MMOL/L (3.5-5.1); SODIUM 139 MMOL/L (136-145)
[2019-12-11 07:48] LABS: CARBON DIOXIDE 28 MMOL/L (21-32)
[2019-12-11] MEDS ORDERED: DICYCLOMINE HCL10 MG ORAL (08:09)
[2019-12-11] MEDS ORDERED: Ketorolac 30mg Inj IV ONE (08:30)
[2019-12-11 08:45] VITALS: BP 138/74
--- NOTE | 2019-12-11 09:09 | NUR ---
ER DISCHARGE NOTE: Patient is cleared to be discharged per ERMD, pt is aox4, on room air, with stable vital signs. pt was given dc and prescription instructions, pt was able to verbalize understanding, pt id band and iv site removed without complications. pt is able to ambulate with steady gait. pt took all belongings. Pt provided with referral and prescription.
[2019-12-11 09:10] VITALS: BP 132/75
== END 2019-12-11 09:11 | disposition home or self-care (01) ==
LOC: EMR 06:30
DX: K52.9 Noninfective gastroenteritis and colitis, unspecified (principal); F43.10 Post-traumatic stress disorder, unspecified; X58.XXXA Exposure to other specified factors, initial encounter; Y93.9 Activity, unspecified; Y92.9 Unspecified place or not applicable
CPT/HCPCS: 36415; 80053; 81003; 83690; 83735; 85025; 85610; 85730; 86900; 86901; 96374; 99284; J1885; J7040

== ENCOUNTER 2019-12-13 10:01 | Emergency (ER) | payer MEDICARE ==
[~2019-12-13] VITALS: Ht 170.2 cm; Wt 49.9 kg
[~2019-12-13 10:01] MED LIST changes: +DICYCLOMINE HCL10 MG ORAL
[2019-12-13 10:33] VITALS: BP 146/76
--- NOTE | 2019-12-13 10:33 | NUR ---
ED Nurse Note:pt. came from home with c/o fainting, pt. is A/Ox3 , VBSS
[2019-12-13 10:57] LABS: APPEARANCE,URINE CLEAR; BILIRUBIN, URINE NEGATIVE (NEGATIVE); COLOR,URINE PALE YELLOW; GLUCOSE, URINE (UA) NEGATIVE (NEGATIVE); KETONES,URINE NEGATIVE (NEGATIVE); LEUKOCYTE ESTERASE ,URINE NEGATIVE (NEGATIVE); NITRITE,URINE NEGATIVE (NEGATIVE); PH,URINE 6 (4.5-8.0); PROTEIN,URINE NEGATIVE (NEGATIVE); UROBILINOGEN,URINE NORMAL MG/DL (0.0-1.0)
[2019-12-13] MEDS ORDERED: LORazepam 1mg tab ORAL ONE (11:00)
--- NOTE | 2019-12-13 11:05 | NUR ---
ED Nurse Note: pt asking for food, Dr. Mascorro notified and approved for pt to eat. pt provided with tuna sandwich and 2 juices for nourishment, tolerated well.
--- NOTE | 2019-12-13 11:50 | NUR ---
ED Nurse Note:pt. refusing IV draw after 2 failed attempts, MD is aware, pt. had chest x-ray and ct head done
[2019-12-13 12:05] VITALS: BP 139/79
--- NOTE | 2019-12-13 12:30 | NUR ---
ED Nurse Note:pt. became very disrespectfull verbaly and screamed that she doesn't want me to be her nurse, charge nurse notified
--- NOTE | 2019-12-13 12:33 | Diagnostic Imaging Report ---
EXAM: CT Head Without Intravenous Contrast CLINICAL HISTORY: SYNCOPE TECHNIQUE: Axial computed tomography images of the head/brain without intravenous contrast. CTDI is 53.4 mGy and DLP is 942.1 mGy-cm. One or more of the following dose reduction techniques were used: automated exposure control, adjustment of the mA and/or kV according to patient size, use of iterative reconstruction technique. COMPARISON: CT head on 08/25/2019 FINDINGS: Brain: No acute infarct or hemorrhage. No extra-axial fluid collection. No mass effect or midline shift. Ventricles and sulci: Stable cerebral volume loss. No ventriculomegaly or intraventricular hemorrhage. Bones: Normal. No bony lesion or acute fracture. Subcutaneous tissues: Normal. Sinuses: Normal. No air-fluid levels or mucosal thickening. Mastoid air cells: Normal. Orbits: Grossly unremarkable. IMPRESSION: No acute intracranial abnormality. Stable mild cerebral volume loss.
--- NOTE | 2019-12-13 12:50 | Diagnostic Imaging Report ---
EXAM: XR Chest, 1 View CLINICAL HISTORY: SYNCOPE TECHNIQUE: Frontal view of the chest. COMPARISON: Chest radiograph On 07/13/2019 FINDINGS: Hardware: None. Lungs/pleura: Normal. No focal consolidation. No pleural effusion or pneumothorax. Heart/mediastinum: Normal. No cardiomegaly. Soft tissues: Unremarkable. Bones: No acute fracture. Upper abdomen: Normal. IMPRESSION: No acute disease identified.
[2019-12-13 13:25] VITALS: BP 139/79
--- NOTE | 2019-12-13 13:25 | NUR ---
ED Nurse Note:pt. is ambulatory with steady gait, A/Ox4, given d/c instruction and she left ED with all of her personal belonfings
--- NOTE | 2019-12-13 15:08 | Emergency Room Report ---
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 COVID-19 Screening: Negative COVID-19 COVID-19 Testing Source: [facility] few weeks ago Nursing Documentation-PMH Past Medical History: No History, Except For Hx Cardiac Problems: No Hx Cancer: No Hx Gastrointestinal Problems: Yes - gastritis, abd hernia Hx Neurological Problems: Yes Hx Weakness: Yes Physical Exam Vital Signs Date Time Temp Pulse Resp B/P (MAP) Pulse Ox O2 Delivery O2 Flow Rate FiO2 12/13/19 10:14 99.1 72 15 146/76 (99) 95 Room Air Medical Decision Making Diagnostic Impression: Primary Impression: Syncope EKG Diagnostic Results Rate: bradycardiac Rhythm: NSR ST Segments: no acute changes ASA given to the pt in ED: No Rhythm Strip Diag. Results EP Interpretation: yes Rhythm: NSR, no PVC's, no ectopy Last Vital Signs Date Time Temp Pulse Resp B/P (MAP) Pulse Ox O2 Delivery O2 Flow Rate FiO2 12/13/19 13:25 98.9 67 15 139/79 99 Room Air Disposition: HOME, SELF-CARE Condition: Stable Referrals: NON PHYSICIAN (PCP) [facility] Patient Instructions: Syncope, [facility] Bolivar Alvares MD Dec 13, 2019 15:08
--- NOTE | 2019-12-14 19:32 | Cardiology Report ---
APPROVED REPORT EKG Measurement Heart [id number] <Conclusion> Sinus bradycardia Otherwise normal ECG
== END 2019-12-13 13:49 | disposition home or self-care (01) ==
LOC: EMR 10:38
DX: R55 Syncope and collapse (principal); R00.1 Bradycardia, unspecified
CPT/HCPCS: 70450; 71045; 80307; 81003; 93005; 96360; 99284